=== PATIENT | male | born 1950 | race Caucasian/White ===

== ENCOUNTER → 2017-04-23 | Outpatient (CLI) | payer OTHER ==
[~2017-04-23] VITALS: Ht 175.3 cm; Wt 81.6 kg
[~2017-04-23] MED LIST: BETIMOL5 ML OTIC; CHANTIX1 MG PO; FLEXERIL PO; HYDROCHLOROTHIA25 M2 PO; IBUPROFEN 800800 M1 PO; NORVASC5 MG PO; OXYCODONE HCL10 MG PO; TRAVATAN Z2.5 ML OPHTHALMIC; VIAGRA100 MG PO; ZANTAC 150MG T150 MG PO
--- NOTE | ~2017-04-23 | HPC ---
[facility] [place] [address] PAIN MANAGEMENT CONSULTATION Name: ARABELLA OMALLEY Room #: REG NBA Lizzeth#: [id number] Admission: 04/23/17 Attend Phys: Leo Mcgill DO Discharge: Date of : 54 Report #: [id number] THIS REPORT FOR: //name// CC: Shahbaz Jimenez Sr. MD Leo Mcgill The patient is a 66-year-old gentleman seen in consultation at the request of Dr. Jimenez for assistance with management of chronic pain concerns. The patient states primary pain is in the low back, right leg to the foot. He denies any myelopathic symptoms, no saddle anesthesia, no bowel or bladder continence changes, no paresthesia or weakness. He states he has abdominal pain this exacerbated with walking and standing. He states that he has had 3 back surgeries [facility], there are no records available. He wears an abdominal binder type brace, uses a cane in his right hand, which he has for 3 years. He states he has [facility] with [facility] efficacy. Notes, he is status post right total hip arthroplasty and bilateral total knee arthroplasties. He describes constant, aching, sharp pain, he rates it a 9-10 on a VAS despite taking a relatively high dose opiate, oxycodone 10 mg 6 a day (equivalent to 90 mEq of morphine daily). Apparently, he has prescriptions provided by his treating physician sufficient to fill through early July. He takes gabapentin on a p.r.n. basis, but takes his oxycodone daily. REVIEW OF SYSTEMS: A complete review of systems was attached to chart and was gone over with the patient. He is . He has a 40-year smoking history, though he quit last year. He states he drinks socially, though medical record from Dr. Jimenez's office notes the patient has a history of alcohol abuse, he does have cirrhosis and history of hepatitis C, though the latter was treated with Harvoni and per the patient, he has a negative viral load. He is hypertensive, treated with hydrochlorothiazide and amlodipine. Some gastroesophageal reflux for which he takes ranitidine. Erectile dysfunction for which he uses Viagra p.r.n. Along with his oxycodone and p.r.n., gabapentin, he states he takes Flexeril 10 mg 2 a day. 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 Pain impact score is a 58/70. PHYSICAL EXAMINATION: Reveals a 5 feet 9 inches, 180 pounds gentleman, BMI is 26.6 kg/m2. Blood pressure is 139/88, pulse 86, and respirations are 20. Cranial nerves 2-12 are grossly intact. Pupils are equal, react to light and accommodation. Extraocular muscles are intact. Cervical range of motion is full, though extension exacerbates pain. Upper extremity strength is symmetric at 4/5 to all muscle groups tested. Some subjective pain in the right shoulder. Heart is regular rhythmical. Lungs are generally clear. Abdomen is benign. He has diffuse back pain in the thoracolumbar paravertebral muscles. He has a [facility] [address] [place] [address] PAIN MANAGEMENT CONSULTATION Name: ARABELLA OMALLEY Room #: REG NBA Moreau#: [id number] Admission: 04/23/17 Attend Phys: Leo Mcgill DO Discharge: Date of : 54 Report #: [id number] midline surgical scar with what appears to be a contraction deformity in the midline about L4. Lower extremity strength is symmetric at 4-5 to all muscle groups tested. Patellar and Achilles reflexes are preserved. Straight leg raise is negative. There are no recent radiographs available for evaluation at this time. ASSESSMENT: Chronic pain syndrome requiring high risk complex medication management. Status post lumbar decompressive laminectomy with primarily axial back pain. RECOMMENDATION: 1. We would recommend the patient take gabapentin on a daily basis, 300 mg 2 tablets at bedtime. 2. We will request any recent x-ray or MRI findings from a [facility]. 3. If I were to treat the patient, I told him we would enter into an opiate consent to treat contract and rotate to methadone 5 mg 1 in the morning, 2 at noon, 1 at night. This should be roughly equivalent to 90 mg of morphine. We will avoid the peaks and troughs of short-acting opiates and the concomitant dopamine release seen with short acting opiates, which may contribute to opiate habituation. We would try opiate wean as able. Given the patient has prescriptions through July, we provided no prescriptions today and I told him I will be happy to see him back in July, we will do a buccal drug swab at that time if he chooses to transfer his opiate care to our clinic. Thank you for allowing me participate in the patient's care. <ELECTRONICALLY SIGNED> By: Leo Mcgill DO 04/29/17 0808 [id number] 1436 Leo Mcgill DO /nt
[2017-04-23 13:39] VITALS: BP 139/88
== END ==
LOC: PAIN 07:30
DX: G89.4 Chronic pain syndrome (principal); M96.1 Postlaminectomy syndrome, not elsewhere classified; Z79.899 Other long term (current) drug therapy

== ENCOUNTER → 2017-06-08 | Outpatient (CLI) | payer OTHER ==
[~2017-06-08] VITALS: Ht 175.3 cm; Wt 91.5 kg
[~2017-06-08] MED LIST changes: +EMBEDA ER 50-21 EACH PO; +EMBEDA ER 60-21 EACH PO; +GABAPENTIN 100100 MG PO; +METHADONE HCL 110 M1 PO; +NEURONTIN 300300 M1 PO
--- NOTE | ~2017-06-08 | HPC ---
[facility] [place] [place] [address] PAIN MANAGEMENT CONSULTATION Name: ARABELLA OMALLEY Room #: REG NBA Moreau#: [id number] Admission: 06/08/17 Attend Phys: Leo Mcgill DO Discharge: Date of : 54 Report #: [id number] THIS REPORT FOR: //name// CC: Sr. MD Leo Del Cid DATE OF SERVICE: 06/08/2017 The patient is a 66-year-old gentleman initially seen in consultation 04/23/2017. He returns to pain clinic today, we had a prolonged visit from 09:54-10:25. Greater than 50% of this 25+ minute visit was spent counseling the patient. Presents to pain clinic today. He has some choreoathetoid type movement today. Seems to be fairly anxious. He tells me that he is concerned about rotating from oxycodone 20 mg 4 times a day to methadone. He tells me today that he had had a history of heroin abuse in his 20s. He used heroin for 7-8 years and then used methadone for 2-3 years to wean off of heroin. He is a poor historian and blames his Harvoni use (for hepatitis C) on his poor memory. He does note chronic axial back pain and bilateral knee pain. Does have a modestly antalgic gait. Rates his pain a 4 on VAS with a fairly high use of short-acting opiate (oxycodone immediate release 20 mg 4 times a day). I stressed with the patient today that the 20 mg oxycodone he is using p.o. is equivalent to 30 mg of morphine and is actually closer to his prior use of heroin than rotating the methadone to be. He was concerned that if he started methadone, he would be "addicted" to narcotics. I assured him he probably had opiate dependence at this point already and was in fact exhibiting some opiate withdrawal today with his agitation and choreoathetoid type movements. He notes his pain is "allover" but primarily back. BMI is 29.8 kilograms per meter squared. Blood pressure is 138/88, pulse 72, respirations 20. Again, rates his pain a 4 on VAS with current medications. He has not fallen in the last 3 months, but does use a cane for balance. History of hypertension and chronic opiate use. We did review an opiate consent to treat contract today. The patient is willing after our discussion to at least trial using methadone for 4 weeks. Again, with the patient taking approximately 120 mEq of morphine a day (80 mg oxycodone), the equivalent would be roughly 30 mg of methadone daily. We have elected to write for 10 mg of methadone t.i.d., I gave him prescription for 45 tablets, his last oxycodone prescription was filled 05/17/2017. We will release the methadone 06/15/2017. A second prescription to be released 2 weeks later, 06/29/2017 for another 45 mg of methadone to be used t.i.d. was generated. We did get a buccal drug swab today. The patient claims that he is only using oxycodone, is not using tobacco products. This should be negative for nicotine, positive for oxycodone metabolites, negative for any other opiate, benzodiazepine or nicotine. [facility] [address] [place] [address] PAIN MANAGEMENT CONSULTATION Name: ARABELLA OMALLEY Room #: ELIECER Moreau#: [id number] Admission: 06/08/17 Attend Phys: Leo Mcgill DO Discharge: Date of : 54 Report #: [id number] Follow up in 4 weeks for reevaluation. Discharged in good stable condition after a 25+ minute visit was spent counseling the patient. <ELECTRONICALLY SIGNED> By: Leo Mcgill DO 06/10/17 0811 1042 1751 Leo Mcgill DO /nt
[2017-06-08 09:33] VITALS: BP 138/88
== END ==
LOC: PAIN 06:59
DX: M54.5 Low back pain (principal); M25.561 Pain in right knee; M25.562 Pain in left knee; Z79.899 Other long term (current) drug therapy

== ENCOUNTER → 2017-07-06 | Outpatient (CLI) | payer OTHER ==
[~2017-07-06] VITALS: Ht 175.3 cm; Wt 90.4 kg
--- NOTE | ~2017-07-06 | HPC ---
[facility] [address] [place] [address] PAIN MANAGEMENT CONSULTATION Name: ARABELLA OMALLEY Room #: ELIECER Moreau#: [id number] Admission: 07/06/17 Attend Phys: Leo Mcgill DO Discharge: Date of : 54 Report #: [id number] THIS REPORT FOR: //name// <ELECTRONICALLY SIGNED> By: Leo Mcgill DO 07/09/17 1010 1201 1520 Leo Mcgill DO /nt
--- NOTE | ~2017-07-06 | HPC ---
[facility] [place] [address] PAIN MANAGEMENT CONSULTATION Name: ARABELLA OMALLEY Room #: REG NBA Moreau#: [id number] Admission: 07/06/17 Attend Phys: Leo Mcgill, DO Discharge: Date of : 54 Report #: [id number] THIS REPORT FOR: //name// CC: Shahbaz Mcgill The patient is a pleasant, yet unfortunate 66-year-old gentleman, initially seen in consultation 04/23/2017, for chronic axial back pain, chronic pain syndrome requiring complex medication management, history of opiate habituation and hepatitis C conversion. The patient had a buccal swab at last visit 06/08/2017, positive for oxycodone and nicotine. The patient returns to pain clinic today, we again had a prolonged visit from 10:57-11:25, greater than 50% of this time spent counseling the patient. The patient claims that when he started taking methadone, he developed a lot of phlegm in the back of his throat, he states he had a hard time swallowing. He states he did not feel the medication was as effective as his prior oxycodone. He had been taking 10 mg 1-2 tablets at a time up to 6 tablets a day. This should have been an equally analgesic dose, 6 oxycodone being roughly equivalent to 120 mg of morphine and even at the lowest conversion, 30 mg of oxycodone should have been equivalent to 120 mg of morphine. The patient incidentally notes he takes high dose Benadryl nearly 100 mg a day for some chronic pruritus (he relates this secondary to alcohol syndrome?). He as noted in prior dictations does have a history of heroin use for about 8 years in the past, was on methadone for about 2 years, getting off of heroin. This had been in his 20s and early 30s, he is now 66 years of age. He does incidentally note that his gabapentin prior had been helpful for his chronic leg pain, though he had self-discontinued it. Today, he notes his subjective pain score is 8 on a VAS, describes pain across the low back and "all over." PHYSICAL EXAMINATION: Otherwise, shows a 66-year-old gentleman, BMI is 29.4 kg/m2. Blood pressure 136/90, pulse 87, respirations are 20. He is alert and oriented to person, place and time, judged to be a reasonable historian. Cervical range of motion is full. Upper extremity strength is preserved. He does have some subjective pain with right shoulder range of motion. Diffuse tenderness in the thoracolumbar paravertebral muscles. No discrete trigger points are noted. Gait is tandem. Lower extremity strength is preserved. [address] [address] PAIN MANAGEMENT CONSULTATION Name: ARABELLA OMALLEY Room #: REG Teri Moreau#: [id number] Admission: 07/06/17 Attend Phys: Leo Mcgill DO Discharge: Date of : 54 Report #: [id number] Straight leg raising negative. We reviewed the fact that opiate medications are being used to provide analgesia adequate to support activities of daily living, not attempting to achieve a specific pain score on the 0-10 Visual Analog Scale. The current opiate medications are providing sufficient analgesia to allow the patient to participate in activities of daily living. The patient is not exhibiting any aberrant behavior suggestive of drug diversion. The patient is not having any adverse reactions to medications. The patient is not suffering from daytime somnolence or mental acuity changes. The patient is managing opiate-induced constipation with appropriate vzxs-ehr-hqeoqfr agents and dietary considerations. The patient was counseled on concern for caution with operating a motor vehicle while using opiate medications. A physical exam was performed and the patient's functional status was evaluated. All patients with back pain were advised against the bed rest greater than 4 days and were advised to return to normal activities. Pain score assessment was noted and the treatment plan was reviewed with the patient. All current medications, both prescribed and OTC were reviewed and reconciled on the electronic medical record. Tobacco screening was accomplished and smoking cessation was advised when indicated. BMI was noted and diet/exercise modification was recommended for all patients following outside normal parameters. I reviewed with the patient today their responsibilities to safeguard prescription medications, reviewed their responsibility to utilize medications only as prescribed by the physician. They are to seek and receive pain medications only from 1 physician group ( [facility]). They are to use 1 pharmacy and keep the clinic informed if they change pharmacies. Their responsibilities include making followup visits in a timely fashion and to avoid abrupt discontinuation of medication usage. Their responsibilities further include bringing their medications (bottles from the pharmacy with residual pills) to the visit for possible confirmation of pill counts and the patient understands it is their responsibility to submit to random drug screens to ensure both that the medications prescribed are present, and that no other controlled substances are present. All prescriptions provided today were generated electronically. Long discussion with the patient today about therapeutic options. I strongly recommend he continue with methadone. I told him we can start to lower that dose if needed. I talked about smoking cessation and absolute mandate no alcohol with methadone. (The patient states that he had started to take a shot of alcohol with his methadone to make it work "better"). Again, I reviewed with the patient his opiate risk. [facility] [address] [place] [address] PAIN MANAGEMENT CONSULTATION Name: ARABELLA OMALLEY Room #: [facility]#: [id number] Admission: 07/06/17 Attend Phys: Leo Mcgill DO Discharge: Date of : 54 Report #: [id number] ASSESSMENT: 1. Axial back pain. 2. Complex medication management. 3. History of opiate habituation and tolerance and subsequent wean now 20 plus years ago. 4. History of hepatitis C, status post Harvoni therapy. RECOMMENDATION: 1. Repeat buccal swab today, should be positive for methadone as the sole opiate, though the patient indicates he may still be taking oxycodone (?). 2. Counseled the patient regarding using methadone as the sole opiate, I have taken the liberty of writing for 45 methadone 10 mg tablets, one tablet 3 times a day with a prescription to be released in 2 weeks for another 45 tablets. 3. Resume gabapentin 300 mg 1-2 tablet at bedtime. 4. Mandate NO alcohol use with methadone. 5. Follow up in 4 weeks for reevaluation. Discharged in good and stable condition. <ELECTRONICALLY SIGNED> By: Leo Mcgill DO 07/09/17 1010 1157 1514 Leo Mcgill DO /nt
[2017-07-06 10:38] VITALS: BP 136/90
== END ==
LOC: PAIN 07:35
DX: M54.5 Low back pain (principal); Z79.899 Other long term (current) drug therapy; Z86.19 Personal history of other infectious and parasitic diseases; F11.10 Opioid abuse, uncomplicated

== ENCOUNTER → 2017-08-17 | Outpatient (CLI) | payer OTHER ==
[~2017-08-17] VITALS: Ht 175.3 cm; Wt 88.7 kg
[~2017-08-17] MED LIST changes: -EMBEDA ER 50-21 EACH PO; -GABAPENTIN 100100 MG PO
--- NOTE | ~2017-08-17 | HPC ---
[facility] [place] [address] PAIN MANAGEMENT CONSULTATION Name: ARABELLA OMALLEY Room #: REG NBA Moreau#: [id number] Admission: 08/17/17 Attend Phys: Leo Mcgill DO Discharge: Date of : 54 Report #: [id number] THIS REPORT FOR: //name// CC: Shahbaz Mcgill DATE OF SERVICE: 08/17/2017 The patient is an unfortunate 67-year-old gentleman, initially seen in consultation on 04/23/2017. He was taking high dose opiates, oxycodone 10 mg 6 a day equivalent to 90 mg of morphine. I suggested rotating to methadone 5 mg 1 in the morning, 2 at noon, 1 at night, but no prescriptions was generated at that time. He was seen in followup on 06/08/2017, noting he was a little bit concerned about rotating back to methadone. Stated he had to use methadone to get off heroin, which he used for about 8 years in his 20s. States he was able to wean off of heroin after 2-3 years. He is a poor historian. He blames use of Harvoni for this (was treated for hepatitis C recently). He does note that his chronic axial back and bilateral knee pain remains problematic. This is the reason for which he was taking his prior opiate. We ultimately did start methadone at that May visit. I saw him in followup 07/06/2017. He complained that he felt that methadone was not helpful. States he is developing a lot of "phlegm" in the back of his throat, felt that he had a hard time swallowing. Again, given that he had been on methadone for a number of years in the past while weaning off of heroin, I do not believe that there is any indication he is allergic to this drug. I think he simply wanted to go back to oxycodone. I suggested we increase the methadone dose if it was not efficacious to a total of 1 tablet 3 times a day. I gave him 2 prescriptions, 1 for 45 tablets (quantity sufficient for 2 weeks) and a second prescription for another 45 tablets to be released 2 weeks subsequent. I mandated the patient to not drink any alcohol with this agent. He returns to pain clinic today noting his pain is an 8 on a VAS. He tells me that he almost fell out of the bathtub because his pain was so bad. It is unclear if he is actually taking methadone or not. He states he took "some," but it did not help and it made him feel like it was hard to swallow. He has resumed drinking alcohol to "help with the pain." He is fairly confrontational and distressed today. I told the patient that I was not going to start him back on short-acting high-dose opiates. I will not do this for any patient and specifically not one who had had trouble with narcotic habituation in the past. Ultimately, after a prolonged discussion with the patient, I have elected to try 1 more long acting opiate, we will try rotating to Embeda 60/2.4. It is a modest decrease in his overall opiate load of 60 oxycodone a day, but with opiate rotation he may get a little better efficacy. I wrote for 15 tablets with a second prescription for 15 tablets to be released in 2 weeks. We will get a urine drug screen at that [facility] [address] [facility] [place] [address] PAIN MANAGEMENT CONSULTATION Name: ARABELLA OMALLEY Room #: ELIECER Wilkes.#: [id number] Admission: 08/17/17 Attend Phys: Leo Mcgill DO Discharge: Date of : 54 Report #: [id number] time. I mandate the patient not drink with this agent. I did not get a urine drug screen today as the patient admitted that he was drinking regularly, although later stated he only "drank yesterday because of his brother's birthday." When I told him I would like to get a urine drug screen and remind him that it would be positive for ethanol if he had drunk within the past 24 hours, he deferred and said perhaps he should not get his urine screen today. PHYSICAL EXAMINATION: Otherwise shows 67-year-old gentleman, BMI is 28.9 kg per meter squared. Vital signs are stable as noted in the EMR. Again, he is generally alert and oriented, somewhat belligerent initially, but did quiet down a little bit. Has choreoathetoid movement while sitting in the chair, does not appear to be comfortable sitting, fairly anxious, rises from the chair. Gait is generally tandem. Diffuse axial tenderness in the low back. Lower extremity strength is symmetric. We reviewed the fact that opiate medications are being used to provide analgesia adequate to support activities of daily living, not attempting to achieve a specific pain score on the 0-10 Visual Analog Scale. The current opiate medications are providing sufficient analgesia to allow the patient to participate in activities of daily living. The patient is not exhibiting any aberrant behavior suggestive of drug diversion. The patient is not having any adverse reactions to medications. The patient is not suffering from daytime somnolence or mental acuity changes. The patient is managing opiate-induced constipation with appropriate qvkb-ehy-anvsxva agents and dietary considerations. The patient was counseled on concern for caution with operating a motor vehicle while using opiate medications. A physical exam was performed and the patient's functional status was evaluated. All patients with back pain were advised against the bed rest greater than 4 days and were advised to return to normal activities. Pain score assessment was noted and the treatment plan was reviewed with the patient. All current medications, both prescribed and OTC were reviewed and reconciled on the electronic medical record. Tobacco screening was accomplished and smoking cessation was advised when indicated. BMI was noted and diet/exercise modification was recommended for all patients following outside normal parameters. I reviewed with the patient today their responsibilities to safeguard prescription medications, reviewed their responsibility to utilize medications only as prescribed by the physician. They are to seek and receive pain medications only from 1 physician group ( [facility]). They are to use 1 pharmacy and keep the clinic informed if they change pharmacies. Their responsibilities include making followup visits in a timely fashion and to avoid abrupt discontinuation of medication usage. Their responsibilities further include bringing their medications (bottles from the pharmacy with residual pills) to the visit for possible confirmation of pill counts and the patient [address] [address] PAIN MANAGEMENT CONSULTATION Name: ARABELLA OMALLEY Room #: REG CL Lizzeth#: [id number] Admission: 08/17/17 Attend Phys: Leo Mcgill DO Discharge: Date of : 54 Report #: [id number] understands it is their responsibility to submit to random drug screens to ensure both that the medications prescribed are present, and that no other controlled substances are present. All prescriptions provided today were generated electronically. The patient discharged in good and stable condition. Follow up in 4 weeks for reevaluation. We will get a urine drug screen at that time; urine screening being more sensitive to ethanol metabolites than buccal swab. <ELECTRONICALLY SIGNED> By: Leo Mcgill DO 08/19/17 0753 1442 10 Leo Mcgill DO /nt
[2017-08-17 12:58] VITALS: BP 132/80
== END ==
LOC: PAIN 07:18
DX: M54.9 Dorsalgia, unspecified (principal); M25.561 Pain in right knee; M25.562 Pain in left knee

== ENCOUNTER → 2017-09-14 | Outpatient (CLI) | payer OTHER ==
[~2017-09-14] VITALS: Ht 175.3 cm; Wt 85.4 kg
[~2017-09-14] MED LIST changes: +EMBEDA ER 50-21 EACH PO; +GABAPENTIN 100100 MG PO
--- NOTE | ~2017-09-14 | HPC ---
[facility] [place] [address] PAIN MANAGEMENT CONSULTATION Name: ARABELLA OMALLEY Room #: REG NBA Moreau#: [id number] Admission: 09/14/17 Attend Phys: Leo Mcgill DO Discharge: Date of : 54 Report #: [id number] THIS REPORT FOR: //name// CC: Shahbaz Mcgill DATE OF SERVICE: 09/14/2017 The patient is a 66-year-old gentleman originally referred to our clinic at the end of last year. He has chronic pain syndrome requiring complex medication management. He is status post multiple back surgeries, status post right total hip arthroplasty, status post bilateral total knee arthroplasties. He has been managed with high-dose short-acting opiates prior to coming to our clinic. When he came, he was taking oxycodone 20 mg 3-4 times a day. Concerned about opiate abuse disorder, he had used heroin for 7 or 8 years in his 20s. He had weaned off heroin using methadone. He did contract hepatitis C and prior to seeing me, he had completed [facility] for hepatitis C. He claimed that the Harvoni had impacted his memory. He is a fairly poor historian. He had continued to keep use tobacco products. He had an odd choreoathetoid type movement with agitation present at all of his prior visits except this one. He is actually a little more physically sedate today. He does not appear to be in active withdrawal as he had been at other visits. We had rotated to Embeda 60 mg once a day. He returns to pain clinic today claiming functional assessment remains quite high at 55/70, rating his pain 8 on a VAS. He states that using gabapentin "for breakthrough" pain helps or leaves him quite sedate for "several days." He has been using simply his 300 mg gabapentin tablet. Today, physical exam shows 67-year-old gentleman, again appears to be a little more relaxed today. He does not have the choreoathetoid constant movement he had before. He is complaining of pain "all over." BMI is 28.9 kilograms per meter squared. Blood pressure 132/80, pulse 86, respirations 20, room air oxygen saturation 98%. Subjective pain score is 3 on a VAS. He is using a cane today. He states the wheels on his walker have broken, but he has someone coming in to fix it. He states his sister is his "healthcare worker." Apparently, she is employed through Medicaid/Medicare getting paid to take care of him (?). She comes by and takes him to the park 3 times a week and they walk for an hour or so. This is his greatest amount of functional/recreational activity. He presents to the pain clinic today. Random drug screen at last visit 07/06/2017 was positive for methadone, nicotine. Negative for EDDP. He is generally alert and oriented. He rises from the chair using armrest. Has a somewhat antalgic gait favoring the right leg, complaining of ongoing right hip pain. Lower extremity strength is generally symmetric, resistance to right hip flexion and lower extremity extension exacerbates hip pain. Passive rotation of the hip is unremarkable, use caution not to exceed normal range of motion. [address] [address] PAIN MANAGEMENT CONSULTATION Name: ARABELLA OMALLEY Room #: REG NBA Moreau#: [id number] Admission: 09/14/17 Attend Phys: Leo Mcgill DO Discharge: Date of : 54 Report #: [id number] Jael test was not challenged. Points to pain in the right hip and groin compatible with a hip mediated pain. Diffuse axial back pain, no discrete trigger points noted. We reviewed the fact that opiate medications are being used to provide analgesia adequate to support activities of daily living, not attempting to achieve a specific pain score on the 0-10 Visual Analog Scale. The current opiate medications are providing sufficient analgesia to allow the patient to participate in activities of daily living. The patient is not exhibiting any aberrant behavior suggestive of drug diversion. The patient is not having any adverse reactions to medications. The patient is not suffering from daytime somnolence or mental acuity changes. The patient is managing opiate-induced constipation with appropriate kxko-ljq-isaazzd agents and dietary considerations. The patient was counseled on concern for caution with operating a motor vehicle while using opiate medications. A physical exam was performed and the patient's functional status was evaluated. All patients with back pain were advised against the bed rest greater than 4 days and were advised to return to normal activities. Pain score assessment was noted and the treatment plan was reviewed with the patient. All current medications, both prescribed and OTC were reviewed and reconciled on the electronic medical record. Tobacco screening was accomplished and smoking cessation was advised when indicated. BMI was noted and diet/exercise modification was recommended for all patients following outside normal parameters. I reviewed with the patient today their responsibilities to safeguard prescription medications, reviewed their responsibility to utilize medications only as prescribed by the physician. They are to seek and receive pain medications only from 1 physician group ( [facility]). They are to use 1 pharmacy and keep the clinic informed if they change pharmacies. Their responsibilities include making followup visits in a timely fashion and to avoid abrupt discontinuation of medication usage. Their responsibilities further include bringing their medications (bottles from the pharmacy with residual pills) to the visit for possible confirmation of pill counts and the patient understands it is their responsibility to submit to random drug screens to ensure both that the medications prescribed are present, and that no other controlled substances are present. All prescriptions provided today were generated electronically. ASSESSMENT: Chronic pain syndrome requiring complex medication management in a gentleman status post lumbar decompressive laminectomy, prior history of opiate habituation and abuse disorder, ongoing nicotine habituation, history of ethanol habituation. RECOMMENDATIONS: 1. Buccal drug swab today. It should be positive for morphine as the sole opiate. We will continue Embeda but decreased from 60 to 50 mg in consideration of the patient's untoward sedation (Embeda 50/2 mg naltrexone), dispensed 30 [facility] [address] [place] [address] PAIN MANAGEMENT CONSULTATION Name: ARABELLA OMALLEY [id number] Admission: 09/14/17 Attend Phys: Leo Mcgill DO Discharge: Date of : 54 Report #: [id number] tablets. We will have the patient follow up in 4 weeks for reevaluation. We will continue gabapentin, but decrease to 100 mg tablet up to t.i.d. for breakthrough pain. 2. Refer to [facility] for evaluation of the right total hip arthroplasty (about 2-1/2 years ago). The patient states he had a total hip arthroplasty accomplished at the [facility] (?). [facility] is no longer "on his insurance network." With ongoing pain from this JAH, I beleive it would be prudent to have an orthopedic w/u to determine if there is any surgical intervention warranted to address this pain generator. Buccal swab accomplished today. Medication changes as noted above. Followup in 4 weeks for reevaluation. The patient was seen for prolonged visit today from 12:39-13:10. Greater than 50% of this visit was spent counseling the patient.Discharged in good and stable condition. <ELECTRONICALLY SIGNED> By: Leo Mcgill DO 09/17/17 0701 [id number] Leo Mcgill DO /nt
[2017-09-14 12:33] VITALS: BP 126/90
== END ==
LOC: PAIN 06:51
DX: G89.29 Other chronic pain (principal); Z79.899 Other long term (current) drug therapy; Z96.641 Presence of right artificial hip joint; Z96.653 Presence of artificial knee joint, bilateral

== ENCOUNTER → 2018-03-26 | Outpatient (CLI) | payer OTHER ==
[~2018-03-26] VITALS: Ht 175.3 cm; Wt 81.8 kg
[2018-03-26 08:14] VITALS: BP 134/93
== END ==
LOC: PAIN 07:09
DX: M54.5 Low back pain (principal); M25.561 Pain in right knee; M25.562 Pain in left knee; M25.551 Pain in right hip; F17.210 Nicotine dependence, cigarettes, uncomplicated; Z72.89 Other problems related to lifestyle; Z79.899 Other long term (current) drug therapy; Z79.891 Long term (current) use of opiate analgesic

== ENCOUNTER → 2018-04-23 | Outpatient (CLI) | payer OTHER ==
[~2018-04-23] VITALS: Ht 175.3 cm; Wt 82.9 kg
--- NOTE | ~2018-04-23 | HPC ---
[facility] [place] [address] [place] [address] PAIN MANAGEMENT CONSULTATION Name: ARABELLA OMALLEY Room #: REG NBA Moreau#: [id number] Admission: 04/23/18 Attend Phys: Adenike Stokes MD Discharge: Date of : 54 Report #: [id number] THIS REPORT FOR: //name// CC: Adenike Jimenez DATE OF SERVICE: 04/23/2018 HISTORY OF PRESENT ILLNESS: The patient is a 67-year-old gentleman who has been followed in the pain clinic because of chronic pain. He is being treated with complex medical management of opioid medications. He has had multiple back surgeries. Status post right hip arthroplasty, bilateral total knee arthroplasties. He is being maintained on opioid medications. I feel that the methadone medication is helpful. Has a history of opioid abuse disorder. He was on heroin 7-8 years while in his 20s. He weaned of the heroin medication and continues to use methadone. Did have contact with hepatitis C. Prior to coming to this clinic, he was treated with Harvoni. He states that the Harvoni has impacted his memory. He is a poor historian. Continues to use tobacco. Has some choreoathetoid movement in the past. He has been treated with gabapentin in the past. He has returned today for renewal of his medications. States that he has not been drinking since we had our conversation at the last visit. ALLERGIES: MORPHINE. MEDICATIONS: Methadone 10 mg tablets 1 p.o. t.i.d. 2-week prescriptions have been released. Travatan Z 2.5 mL 1 drop ophthalmic at bedtime, timolol ____ drops, Flexeril 10 mg 1 p.o. t.i.d., Zantac 150 mg, Norvasc 5 mg, and hydrochlorothiazide 25 mg. PAIN CLINIC ASSESSMENT/PQRS: 1. History of osteoarthritic changes in his knees, right hip. The patient is not being treated for rheumatoid arthritis. 2. Height 5 feet 9 inches, weight 182 pounds, BMI is 27. 3. Vital signs: Blood pressure 137/78, pulse 79, respiratory rate 16, room air saturation 97%. 4. Pain intensity 11/17. 5. Fall risk. The patient has not fallen in the last 3 months. He does walk with a cane. 6. Blood thinner. The patient is not on a blood thinning medication. 7. Hypertension. The patient is being treated for hypertension. 8. Opioid medications greater than 6 weeks. The patient receives his medication from one source, the pain clinic. 9. Risk assessment tool, 9 high for opioid use. 10. Functional assessment tool 55/70. 11. Recreational drug use. The patient denies use of recreational drugs. [address] [address] PAIN MANAGEMENT CONSULTATION Name: ARABELLA OMALLEY [id number] Admission: 04/23/18 Attend Phys: Adenike Stokes MD Discharge: Date of : 54 Report #: [id number] 12. Tobacco: The patient continues to smoke, smokes 1 pack of cigarettes per day and smoked for years. Again, discussed the benefits of smoking cessation with the patient. 13. Alcohol. Explained to the patient that he should refrain from use of alcoholic beverages, states that he has decreased his use of alcohol. PHYSICAL EXAMINATION: GENERAL: The patient is a well-developed, well-nourished black male, appears his stated age. He is alert and oriented today. Speech is fluent. No evidence or activity, which would lead one to believe that he has alcohol on board. NECK: Without JVD or adenopathy. Pulse regular. LUNGS: Without rhonchi or rales. MUSCULOSKELETAL: The patient complains of back pain, has bilateral knee pain, has pain in his right hip. Walks with an antalgic gait, using his cane. IMPRESSION: 1. Chronic pain, treated with complex medical management using opioid medication. 2. Hypertension. 3. Liver disease. 4. History of hepatitis C, treated with Harvoni. 5. Stomach problems. RECOMMENDATIONS: We discussed treatment options with the patient. Again, we reiterate to the patient, he should refrain from use of alcohol. States his medications are helpful. Continues to go and be followed in the [facility]. We have rewritten his medications. We have given him a 2-week supply of methadone, 45 mg in each script. He will follow up in a month. He will continue with Neurontin and note his GI status with use of nonsteroidal anti-inflammatory medications. We would like to thank you for letting us participate in his care. We hope he continues to improve. By: [id number] Adenike Stokes MD /nt
[2018-04-23 08:47] VITALS: BP 137/78
== END ==
LOC: PAIN 08:39
DX: G89.29 Other chronic pain (principal); I10 Essential (primary) hypertension; K76.9 Liver disease, unspecified; F17.210 Nicotine dependence, cigarettes, uncomplicated; Z79.891 Long term (current) use of opiate analgesic; Z86.19 Personal history of other infectious and parasitic diseases; Z96.641 Presence of right artificial hip joint; Z96.653 Presence of artificial knee joint, bilateral; Z88.5 Allergy status to narcotic agent

== ENCOUNTER → 2018-05-28 | Outpatient (CLI) | payer OTHER ==
[~2018-05-28] VITALS: Ht 175.3 cm; Wt 81.2 kg
--- NOTE | ~2018-05-28 | HPC ---
[facility] [place] [address] PAIN MANAGEMENT CONSULTATION Name: ARABELLA OMALLEY Room #: REG NBA Lizzeth#: [id number] Admission: 05/28/18 Attend Phys: Adenike Stokes MD Discharge: Date of : 54 Report #: [id number] THIS REPORT FOR: //name// CC: Adenike Hartmann Amite DATE OF SERVICE: 05/28/2018 CHIEF COMPLAINT: Here for renewal of medication. HISTORY: The patient is a 67-year-old gentleman who has been followed in the pain clinic because of chronic pain. He is on a complex medication management using opioids. He has had multiple back surgeries. He is status post right hip arthroplasty and has had bilateral total knee arthroplasties. He is being maintained on an opioid regimen. The patient did find methadone continues to be helpful. Does have a history of opioid abuse disorder. He was using heroin for 7-8 years when he was in his 20s. He is weaned off the heroin medication and continues to use methadone. The patient did contact hepatitis C. He has been treated for this with [facility]. States that the Harvoni impacted his memory. He is a poor historian. Continues to use tobacco. Has some choreoathetoid movements in the past. Has used gabapentin in the past. Returns today with his significant other for renewal of his medication. States he is not drinking. We have had a discussion that use of methadone and alcohol would be a reason for having to discontinue his opioid medications. ALLERGIES: MORPHINE. CURRENT MEDICATIONS: Methadone 10 mg 1 p.o. t.i.d., 2-week prescription has been released. A second 2-week prescription has been released. The patient get his medications by monthly Travatan Z 2 mL 1 drop of ophthalmic at bedtime, timolol drops, Flexeril 10 mg 1 p.o. t.i.d., Zantac 150 mg, Norvasc 5 mg, hydrochlorothiazide 25 mg. PAIN CLINIC ASSESSMENT/PQRS: 1. History of osteoarthritic changes involving his knees, hip. 2. The patient is not being treated for rheumatoid arthritis. 3. Height 5 feet 9 inches, weight 179 pounds, BMI is 24.4. 4. Vital signs: Blood pressure 129/86, pulse 80, respiratory rate 18, room air saturation 97%. 5. Pain intensity 8-/10. 6. Fall risk. The patient has not fallen in the last 3-4 months. Complain of some shooting pain in his low back area. 7. Blood thinner. The patient is not on a blood thinning medication. 8. Hypertension. The patient is being treated for hypertension. 9. Opioid greater than 6-week. 10. Risk assessment tool. High for opioid use. [facility] [address] [place] [address] PAIN MANAGEMENT CONSULTATION Name: ARABELLA OMALLEY Room #: REG [employer]#: [id number] Admission: 05/28/18 Attend Phys: Adenike Stokes MD Discharge: Date of : 54 Report #: [id number] 11. Functional assessment tool 55/70. 12 Recreational drug use. The patient denies use of recreational drugs. 13. Tobacco: The patient states that he has used Chantix to help decrease tobacco use. 14. Alcohol: The patient has used alcohol in the past. States he has not used alcohol since we saw him last. PHYSICAL EXAMINATION: GENERAL: The patient is a well-developed, well-nourished appearing black male, appears his stated age. He is alert and oriented x3. His significant other is with him. Has complained of pain and discomfort and his low back area, knees, hips. Walks with antalgic gait. Continues to use his cane. LUNGS: Without rhonchi or rales. NECK: Without JVD or adenopathy. IMPRESSION: 1. Chronic pain treated with complex medical regimen using opioid medications dispensed, 2-week intervals of methadone 2. Hypertension. 3. Liver disease. 4. Hepatitis C, treated with Harvoni. 5. Strong stomach problems. RECOMMENDATIONS: We discussed treatment options with the patient. Again, he states that he is not using alcohol. We explained to him, he must refrain from use of alcohol. Continues to receive his opioid medications from the pain clinic. Continues to be followed up in the [facility]. We have rewritten 2-week supplies of his medications. Total of two scripts of 45 tablets each to be dispersed during the course of month. He will call us if he has any concerns. The patient will continue with Neurontin and monitor his GI tract. Given using nonsteroidal anti-inflammatory medications. We would like to thank you for letting us to participate in his care. We hope he continues to improve. By: [id number] Adenike Stokes MD /JARROD
[2018-05-28 10:13] VITALS: BP 129/86
--- NOTE | 2018-05-28 10:19 | NUR ---
Pain Clinic Assessment: 1. History of Osteoarthritis: "ALL OVER" History of Rheumatoid Arthritis: Not Applicable 2. Height: 5 ft. 9 in. 175.3 cm. Weight: 179.0 lb. oz. 81.194 kg. Patient's BMI: 26.4 3. Vital Signs: BP: 129/86 Pulse: 80 Resp: 18 Temp: 02 Sat: 97 ECG Mon: 4. Pain Intensity: 9 5. Fall Risk: Dizziness: N Needs help standing or walking: Y Fallen in the last 3 months: Y Fall risk comments: 6. Patient on Blood Thinner: None 7. History of Hypertension: Y 8. Opioid Therapy greater than 6 weeks: Y Opiate Contract Signed: 06/08/17 9. Risk Assessment Tool Provided: 9- HIGH 10. Functional Assessment Tool: / 11. Recreational Drug Use: Past greater than 3 mos Drug Type: Tobacco Use: Current Every Day Smoker Tobacco Type: Amount or Packs/day: How Many Years: Alcohol Use: Yes Frequency: Quant:
== END ==
LOC: PAIN 05-26 14:17
DX: M54.5 Low back pain (principal); M25.561 Pain in right knee; M25.562 Pain in left knee; M25.551 Pain in right hip; F17.200 Nicotine dependence, unspecified, uncomplicated; Z79.899 Other long term (current) drug therapy; Z79.891 Long term (current) use of opiate analgesic; Z72.89 Other problems related to lifestyle

== ENCOUNTER → 2018-07-08 | Outpatient (CLI) | payer OTHER ==
[~2018-07-08] VITALS: Ht 175.3 cm; Wt 81.0 kg
--- NOTE | ~2018-07-08 | HPC ---
[facility] [place] [address] PAIN MANAGEMENT CONSULTATION Name: ARABELLA OMALLEY Room #: REG [facility] Lizzeth#: [id number] Admission: 07/08/18 ������������������ Attend Phys: Krysta Chatterjee Discharge: ������������������ Date of : 54 Report #: [id number] THIS REPORT FOR: //name// CC: Krysta Hartmann Barbara DATE OF SERVICE: 07/08/2018 CHIEF COMPLAINT: Chronic back pain and right hip pain. HISTORY OF PRESENT ILLNESS: The patient returns to the pain clinic today for medication management for his ongoing low back pain and right hip pain. Today, he is also complaining of some left shoulder pain and it does radiate into his left hand. He tells me his pain score is 8/10. It is a sharp, constant, stabbing pain. He states the weather has made his pain worse, he said, as well as activity, standing and movement. The medications are helpful as well as heat and rest. He would like a refill of his medications today. He is here present with a family member. He does complain about having to come every month and getting scripts normally every 2 weeks, but he would like his medication filled today. CURRENT ALLERGIES: To GABAPENTIN. MEDICATIONS: Methadone 10 mg 3 times a day, Travatan drops at bedtime, Betimol drops daily, Flexeril 10 mg 3 times a day, Zantac 150 mg b.i.d., amlodipine 5 mg daily and hydrochlorothiazide 25 mg daily. PQRS: 1. He has a history of arthritic changes in his knees and his hips. He is not being treated for rheumatoid arthritis. 2. His height is 5 feet 9 inches, weight is 178 and BMI is 26. 3. Vital signs: Blood pressure 141/88, pulse is 83, respirations 16 and oxygen sat is 99. 4. Pain score is 8/10. 5. Fall risk. Denies dizziness, does not need help walking or standing and he has not fallen in the last 3 months. 6. He is not on any blood thinners but does take medicine for hypertension. 7. Opiate therapy is greater than 6 weeks; therefore, an opioid signed contract is on the chart. 8. Risk assessment tool is moderate. His functional assessment is 40/70. 9. Recreational drug use, greater than 3 months. He does smoke cigarettes every day and he does use alcohol frequently. We checked the prescription monitoring system. The patient is filling appropriately from his medications every 2 weeks. There is a recent drug screen on his chart within the past year. The patient tells me he does safeguard his [address] [address] PAIN MANAGEMENT CONSULTATION Name: ARABELLA OMALLEY Room #: [facility] Moreau#: [id number] Admission: 07/08/18 ������������������ Attend Phys: Krysta Chatterjee Discharge: ������������������ Date of : 54 Report #: [id number] medications. PHYSICAL EXAMINATION: GENERAL: This is a well-developed, well-nourished black gentleman who appears his stated age. He is alert and orientated. HEENT: Normocephalic and atraumatic. Extraocular eye muscles are intact. MUSCULOSKELETAL: He walks with an antalgic gait. He uses a cane. Complains of some low back and right hip today. Also, some left shoulder pain but does have good range of motion. He does have some choreoathetoid movements that are present today. IMPRESSION: 1. Chronic pain treated with complex medical management using opioids, methadone, dispensed every 2 weeks. 2. Hypertension. 3. Liver disease. 4. Hepatitis C, treated in the past with [place]. We reviewed the fact that opiate medications are being used to provide analgesia adequate to support activities of daily living, not attempting to achieve a specific pain score on the 0-10 Visual Analog Scale. The current opiate medications are providing sufficient analgesia to allow the patient to participate in activities of daily living. The patient is not exhibiting any aberrant behavior suggestive of drug diversion. The patient is not having any adverse reactions to medications. The patient is not suffering from daytime somnolence or mental acuity changes. The patient is managing opiate-induced constipation with appropriate stir-rgg-lhcftmv agents and dietary considerations. The patient was counseled on concern for caution with operating a motor vehicle while using opiate medications. A physical exam was performed and the patient's functional status was evaluated. All patients with back pain were advised against the bed rest greater than 4 days and were advised to return to normal activities. Pain score assessment was noted and the treatment plan was reviewed with the patient. All current medications, both prescribed and OTC were reviewed and reconciled on the electronic medical record. Tobacco screening was accomplished and smoking cessation was advised when indicated. BMI was noted and diet/exercise modification was recommended for all patients following outside normal parameters. I reviewed with the patient today their responsibilities to safeguard prescription medications, reviewed their responsibility to utilize medications only as prescribed by the physician. They are to seek and receive pain medications only from 1 physician group ([facility]). They are to use 1 pharmacy and keep the clinic informed if they change pharmacies. Their responsibilities include making followup visits in a timely fashion and to avoid [address] [address] PAIN MANAGEMENT CONSULTATION Name: ARABELLA OMALLEY Room #: REG [facility] Chung#: [id number] Admission: 07/08/18 ������������������ Attend Phys: Krysta Chatterjee Discharge: ������������������ Date of : 54 Report #: [id number] abrupt discontinuation of medication usage. Their responsibilities further include bringing their medications (bottles from the pharmacy with residual pills) to the visit for possible confirmation of pill counts and the patient understands it is their responsibility to submit to random drug screens to ensure both that the medications prescribed are present, and that no other controlled substances are present. All prescriptions provided today were generated electronically. RECOMMENDATIONS: 1. We discussed treatment options with the patient today. The patient tells me that he is not using any alcohol today and not using any nonprescription medications that are illegal substances. He does complain about having to come every month for his medicine and only get every medicines every 2 months. I explained to the patient based on his history of heroin use, Dr. Stokes is reluctant to give him one month of medications at a time. He will continue to treat him every 2 weeks with prescriptions but see me every month. I explained to the patient that if he did not like this protocol that Dr. Stokes is following that he is welcome to go elsewhere for his medications and find another doctor that is willing to write for that, but this is how our doctor set to treat him as a patient. The patient verbalizes understanding. He said he is just not happy that, he can only get 2 months of medication at a time. 2. Script was given today for methadone 10 mg 1 p.o. t.i.d. #45 to release today and in 4 weeks. 3. The patient will be seen in 1 month time and an appointment was made. 4. Dr. Alejandro Franks did see the patient and collaborated with care today. ��������������������������������������������� ���������������������������������������� By: ��������������������������������������������� [id number] Krysta Chatterjee /yumiko
[2018-07-08 10:49] VITALS: BP 141/88
--- NOTE | 2018-07-08 11:19 | NUR ---
Pain Clinic Assessment: 1. History of Osteoarthritis: "ALL OVER" History of Rheumatoid Arthritis: Not Applicable 2. Height: 5 ft. 9 in. 175.3 cm. Weight: 178.6 lb. oz. 81.012 kg. Patient's BMI: 26.4 3. Vital Signs: BP: 141/88 Pulse: 83 Resp: 16 Temp: 02 Sat: 99 ECG Mon: 4. Pain Intensity: 8 5. Fall Risk: Dizziness: N Needs help standing or walking: Y Fallen in the last 3 months: N Fall risk comments: 6. Patient on Blood Thinner: None 7. History of Hypertension: Y 8. Opioid Therapy greater than 6 weeks: Y Opiate Contract Signed: 06/08/17 9. Risk Assessment Tool Provided: HIGH RISK 10. Functional Assessment Tool: 55/ 11. Recreational Drug Use: Past greater than 3 mos Drug Type: HEROIN Tobacco Use: Current Every Day Smoker Tobacco Type: Cigarettes Amount or Packs/day: 1 PPD How Many Years: 42 Alcohol Use: Past use Frequency: Quant:
== END ==
LOC: PAIN 07-07 07:37
DX: G89.29 Other chronic pain (principal); M54.5 Low back pain; I10 Essential (primary) hypertension; K76.9 Liver disease, unspecified; B19.20 Unspecified viral hepatitis C without hepatic coma; Z79.891 Long term (current) use of opiate analgesic; Z79.899 Other long term (current) drug therapy

== ENCOUNTER → 2018-08-11 | Outpatient (CLI) | payer OTHER ==
[~2018-08-11] VITALS: Ht 175.3 cm; Wt 82.2 kg
[~2018-08-11] MED LIST changes: +IBUPROFEN 200200 M1 PO
[2018-08-11 10:17] VITALS: BP 132/90
--- NOTE | 2018-08-11 10:26 | NUR ---
Pain Clinic Assessment: 1. History of Osteoarthritis: "ALL OVER" History of Rheumatoid Arthritis: Not Applicable 2. Height: 5 ft. 9 in. 175.3 cm. Weight: 181.2 lb. oz. 82.192 kg. Patient's BMI: 26.7 3. Vital Signs: BP: 132/90 Pulse: 80 Resp: 14 Temp: 02 Sat: 99 ECG Mon: 4. Pain Intensity: 8 5. Fall Risk: Dizziness: N Needs help standing or walking: N Fallen in the last 3 months: N Fall risk comments: 6. Patient on Blood Thinner: None 7. History of Hypertension: Y 8. Opioid Therapy greater than 6 weeks: Y Opiate Contract Signed: 06/08/17 9. Risk Assessment Tool Provided: HIGH RISK 10. Functional Assessment Tool: 55/70 11. Recreational Drug Use: Past greater than 3 mos Drug Type: Tobacco Use: Current Every Day Smoker Tobacco Type: Amount or Packs/day: How Many Years: Alcohol Use: Past use Frequency: Quant:
--- NOTE | 2018-08-12 09:17 | HPC ---
[facility] [address] [place] [address] PAIN MANAGEMENT CONSULTATION Name: ARABELLA OMALLEY Room #: REG Teri Moreau#: [id number] Admission: 08/11/18 ������������������ Attend Phys: Krysta Chatterjee Discharge: ������������������ Date of : 54 Report #: [id number] THIS REPORT FOR: //name// CC: Krysta Hartmann Barbara DATE OF SERVICE: 08/11/2018 CHIEF COMPLAINT: Chronic back pain and hip pain, right-sided. HISTORY OF PRESENT ILLNESS: The patient returns to the Pain Clinic today for refill of his medications. He tells me that he continues to have low back and right hip pain. He is also complaining of some left shoulder pain that is radiating down his left arm into his hand today. He tells me his pain score is an average of 8/10, which he is rating it today. His medications are helpful as well as heat, using pillows and resting. Activity makes his pain worse, standing and movement as well. He denies any constipation issues or any daytime sleepiness. He tells me that he does have a home health aide that comes every day that helps him with his cooking and cleaning. He does go to the grocery store he tells me by himself. They are not present with him today. He did drive himself here today. He would like a refill of his medications, which he finds are very helpful. ALLERGIES: GABAPENTIN. MEDICATIONS: Ibuprofen 200 mg 3 times a day, methadone 10 mg 3 times a day, Travatan drops at bedtime, Betimol drops daily, Flexeril 10 mg p.r.n., Zantac 150 mg b.i.d., Norvasc 5 mg daily, hydrochlorothiazide 25 mg daily. PQRS: 1. The patient has osteoarthritis in his knees and hips. He tells me other joints as well. He is not being treated for rheumatoid arthritis. 2. Height is 5 feet 9 inches, weight is 181. BMI is 26. 3. Vital signs: 132/90, pulse is 80, respirations 14, oxygen sat is 99. 4. Pain score is 8/10. 5. Fall risk. Denies dizziness, does not need help walking or standing, has not fallen in the last 3 months. 6. The patient is not on any blood thinners. He does take medicine for hypertension. 7. Opiate therapy is greater than 6 weeks. Therefore an opioid signed contract is on the chart. 8. His risk assessment is high. His functional assessment is 55/70. 9. Recreational drug use is greater than 3 months. He is a current smoker of cigarettes and he does not drink alcohol. We did check the prescription monitoring system. The patient is filling appropriately from doctors within our clinic. He fills them at 2-week intervals and [place] [address] PAIN MANAGEMENT CONSULTATION Name: ARABELLA OMALLEY [id number] Admission: 08/11/18 ������������������ Attend Phys: Krysta Chatterjee Discharge: ������������������ Date of : 54 Report #: [id number] today. He does have a recent drug screen on the chart that shows current medicines that we prescribed for him. PHYSICAL EXAMINATION: GENERAL: This is a well-developed, well-nourished black gentleman, who appears his stated age. He is alert and orientated. HEENT: Normocephalic, atraumatic. Extraocular eye muscles are intact. MUSCULOSKELETAL: He walks with an antalgic gait. He is using a cane today. He complains of low back pain that radiates into his right hip. His lower extremity strength is judged to be 5/5 in all major muscle groups. He is able to move from sitting to standing without difficulty. ASSESSMENT: 1. Chronic pain treated with complex medical management using opioids. 2. Hypertension. 3. Liver disease. 4. Hepatitis C. We reviewed the fact that opiate medications are being used to provide analgesia adequate to support activities of daily living, not attempting to achieve a specific pain score on the 0-10 Visual Analog Scale. The current opiate medications are providing sufficient analgesia to allow the patient to participate in activities of daily living. The patient is not exhibiting any aberrant behavior suggestive of drug diversion. The patient is not having any adverse reactions to medications. The patient is not suffering from daytime somnolence or mental acuity changes. The patient is managing opiate-induced constipation with appropriate wtfz-etu-guiwdec agents and dietary considerations. The patient was counseled on concern for caution with operating a motor vehicle while using opiate medications. A physical exam was performed and the patient's functional status was evaluated. All patients with back pain were advised against the bed rest greater than 4 days and were advised to return to normal activities. Pain score assessment was noted and the treatment plan was reviewed with the patient. All current medications, both prescribed and OTC were reviewed and reconciled on the electronic medical record. Tobacco screening was accomplished and smoking cessation was advised when indicated. BMI was noted and diet/exercise modification was recommended for all patients following outside normal parameters. I reviewed with the patient today their responsibilities to safeguard prescription medications, reviewed their responsibility to utilize medications only as prescribed by the physician. They are to seek and receive pain medications only from 1 physician group ( [facility]). They are to use 1 pharmacy and keep the clinic informed if they change pharmacies. Their responsibilities include making followup visits in a timely fashion and to avoid [facility] [address] [place] [address] PAIN MANAGEMENT CONSULTATION Name: ARABELLA OMALLEY Room #: [facility].#: [id number] Admission: 08/11/18 ������������������ Attend Phys: Krysta Chatterjee Discharge: ������������������ Date of : 54 Report #: [id number] abrupt discontinuation of medication usage. Their responsibilities further include bringing their medications (bottles from the pharmacy with residual pills) to the visit for possible confirmation of pill counts and the patient understands it is their responsibility to submit to random drug screens to ensure both that the medications prescribed are present, and that no other controlled substances are present. All prescriptions provided today were generated electronically. PLAN: 1. We discussed treatment options with the patient today. We will refill his methadone, which is 10 mg 1 tablet 3 times a day, #45 tablets for today and release again in 2 weeks' time period. This is for his insurance purposes as what we were told that he gets them for one month at a time, that only every 2-week intervals to be released these medications. 2. The patient seen by Dr. Adam Stokes, who also collaborated in care today. Appointment made for 1 month. Follow up time to see myself again in one month. The patient is agreeable with plan of care today. ��������������������������������������������� <ELECTRONICALLY SIGNED> ���������������������������������������� By: Krysta Chatterjee ��������������������������������������������� 08/12/18 0917 1418 8 Krysta Chatterjee /yumiko
== END ==
LOC: PAIN 08-05 13:31
DX: I10 Essential (primary) hypertension (principal); B19.20 Unspecified viral hepatitis C without hepatic coma; K76.9 Liver disease, unspecified; G89.29 Other chronic pain; Z88.8 Allergy status to other drugs, medicaments and biological substances; Z79.899 Other long term (current) drug therapy

== ENCOUNTER → 2018-09-08 | Outpatient (CLI) | payer OTHER ==
[~2018-09-08] VITALS: Ht 175.3 cm; Wt 80.3 kg
[~2018-09-08] MED LIST changes: +ASPIRIN81 M2 PO; +BRILINTA90 MG PO; +LIPITOR80 MG PO; +METOPROLOL TART25 MG PO
--- NOTE | 2018-09-08 09:56 | NUR ---
Pain Clinic Assessment: 1. History of Osteoarthritis: "ALL OVER" History of Rheumatoid Arthritis: Not Applicable 2. Height: ft. in. cm. Weight: lb. oz. kg. Patient's BMI: 3. Vital Signs: BP: Pulse: Resp: Temp: 02 Sat: ECG Mon: 4. Pain Intensity: 7 5. Fall Risk: Dizziness: N Needs help standing or walking: N Fallen in the last 3 months: N Fall risk comments: 6. Patient on Blood Thinner: None 7. History of Hypertension: Y 8. Opioid Therapy greater than 6 weeks: Y Opiate Contract Signed: 06/08/17 9. Risk Assessment Tool Provided: HIGH RISK 10. Functional Assessment Tool: 55/70 11. Recreational Drug Use: Past greater than 3 mos Drug Type: Tobacco Use: Current Every Day Smoker Tobacco Type: Amount or Packs/day: How Many Years: Alcohol Use: Past use Frequency: Quant:
[2018-09-08 10:19] VITALS: BP 107/67
--- NOTE | 2018-09-08 11:59 | NUR ---
Pain Clinic Assessment: 1. History of Osteoarthritis: "ALL OVER" History of Rheumatoid Arthritis: Not Applicable 2. Height: 5 ft. 9 in. 175.3 cm. Weight: 177.0 lb. oz. 80.287 kg. Patient's BMI: 26.1 3. Vital Signs: BP: 107/67 Pulse: 84 Resp: 16 Temp: 02 Sat: 94 ECG Mon: 4. Pain Intensity: 7 5. Fall Risk: Dizziness: N Needs help standing or walking: N Fallen in the last 3 months: N Fall risk comments: 6. Patient on Blood Thinner: None 7. History of Hypertension: Y 8. Opioid Therapy greater than 6 weeks: Y Opiate Contract Signed: 06/08/17 9. Risk Assessment Tool Provided: HIGH RISK 10. Functional Assessment Tool: 55/ 11. Recreational Drug Use: Past greater than 3 mos Drug Type: Tobacco Use: Current Every Day Smoker Tobacco Type: Amount or Packs/day: How Many Years: Alcohol Use: Past use Frequency: Quant:
--- NOTE | 2018-09-09 13:30 | HPC ---
[facility] [place] [address] PAIN MANAGEMENT CONSULTATION Name: ARABELLA OMALLEY Room #: REG NBA Moreau#: [id number] Admission: 09/08/18 ������������������ Attend Phys: Krysta Chatterjee Discharge: ������������������ Date of : 54 Report #: [id number] THIS REPORT FOR: //name// CC: Krysta Hartmann Barbara DATE OF SERVICE: 09/08/2018 CHIEF COMPLAINT: Chronic back pain and hip pain on his right side, left shoulder pain. HISTORY OF PRESENT ILLNESS: This is a 68-year-old gentleman who returns to the pain clinic today for refill of his medication. He continues to have right hip pain and low back pain. He tells me today he is also having left shoulder pain that radiates into his left arm and hand. He rates his pain score as 7/10 today, mostly constant, dull, aching pain, but occasionally stabbing pain. He said it is worse with cold weather and activity, better with his medications and heat. He tells me he does not have any problems with constipation, he does take some fxba-wnw-kvkalpp medicines. He would like a refill of his medications today. The patient questions about Narcan prescription. He tells me that his pharmacist and [employer] have called him and talked to him about obtaining a Narcan prescription from Dr. Stokes when he sees him at his next visit. He does not think that this is necessary for him, but he is questioning if he should have a prescription and have some at home since they have brought it to his attention. ALLERGIES: GABAPENTIN. MEDICATIONS: Chantix, Brilinta 90 mg b.i.d., Lipitor 80 mg daily, metoprolol 25 mg daily, 81 mg aspirin, methadone 10 mg 3 times a day, Travatan drops at bedtime, Betimol drops daily, Flexeril p.r.n., Zantac 150 mg b.i.d., amlodipine 5 mg daily and hydrochlorothiazide 25 mg daily. PQRS: 1. He has osteoarthritis in his knees, hips and shoulders. He denies any rheumatoid arthritis. 2. Height is 5 feet 9 inches, weight is 181, BMI is 26. 3. Vital Signs: Blood pressure 126/90, pulse is 82, respirations 14, oxygen sat is 99. 4. Pain score is 7. 5. Fall risk: Denies dizziness. Does not need help with walking or standing. Has not fallen in the last 3 months. 6. The patient is on blood thinner, Brilinta. He does take medicines for hypertension. 7. Opioid therapy is greater than 6 weeks; therefore, [place] [address] PAIN MANAGEMENT CONSULTATION Name: ARABELLA OMALLEY Room #: ELIECER Moreau#: [id number] Admission: 09/08/18 ������������������ Attend Phys: Krysta Chatterjee Discharge: ������������������ Date of : 54 Report #: [id number] is on the chart. 8. Risk assessment tool is highly. Functional assessment is 55/70. 9. Recreational drug use, in the past. He is a current smoker and also using Chantix to try and decrease smoking. He had alcohol use in the past. We did check the prescription monitoring system. The patient is filling appropriately from Dr. Stokes in 2-week intervals. There is a drug screen on the chart on this patient. PHYSICAL EXAMINATION: GENERAL: This is a well-developed, well-nourished black gentleman who appears his stated age. He is alert and orientated placing his pain score today at 7/10. HEENT: Normocephalic, atraumatic. Extraocular eye muscles are intact. Mucous membranes are moist. MUSCULOSKELETAL: He walks with an antalgic gait. He complains of low back pain that radiates into his right hip, into his upper thigh. Also complains of left shoulder pain that radiates into his left arm. His lower extremity strength is judged to be 5/5 in all major muscle groups and his upper extremity strength judged to be 5/5 in all major muscle groups. He is able to move from sitting to standing without difficulty. IMPRESSION: 1. Chronic pain, treated with complex medical management using opioids. 2. Hypertension. 3. Liver disease. 4. Hepatitis C. We reviewed the fact that opiate medications are being used to provide analgesia adequate to support activities of daily living, not attempting to achieve a specific pain score on the 0-10 Visual Analog Scale. The current opiate medications are providing sufficient analgesia to allow the patient to participate in activities of daily living. The patient is not exhibiting any aberrant behavior suggestive of drug diversion. The patient is not having any adverse reactions to medications. The patient is not suffering from daytime somnolence or mental acuity changes. The patient is managing opiate-induced constipation with appropriate zhhs-qia-faiwlza agents and dietary considerations. The patient was counseled on concern for caution with operating a motor vehicle while using opiate medications. A physical exam was performed and the patient's functional status was evaluated. All patients with back pain were advised against the bed rest greater than 4 days and were advised to return to normal activities. Pain score assessment was noted and the treatment plan was reviewed with the patient. All current medications, both prescribed and OTC were reviewed and reconciled on the electronic medical record. Tobacco screening was accomplished and smoking [address] [place] [address] PAIN MANAGEMENT CONSULTATION Name: ARABELLA OMALLEY Room #: REG [facility]#: [id number] Admission: 09/08/18 ������������������ Attend Phys: Krysta Chatterjee Discharge: ������������������ Date of : 54 Report #: [id number] cessation was advised when indicated. BMI was noted and diet/exercise modification was recommended for all patients following outside normal parameters. I reviewed with the patient today their responsibilities to safeguard prescription medications, reviewed their responsibility to utilize medications only as prescribed by the physician. They are to seek and receive pain medications only from 1 physician group ( [facility]). They are to use 1 pharmacy and keep the clinic informed if they change pharmacies. Their responsibilities include making followup visits in a timely fashion and to avoid abrupt discontinuation of medication usage. Their responsibilities further include bringing their medications (bottles from the pharmacy with residual pills) to the visit for possible confirmation of pill counts and the patient understands it is their responsibility to submit to random drug screens to ensure both that the medications prescribed are present, and that no other controlled substances are present. All prescriptions provided today were generated electronically. PLAN: 1. We discussed treatment options with the patient today. The patient is doing quite well on his current methadone regimen. Scripts given today for methadone 10 mg t.i.d. #45 to be released today and 4-week. 2. We did discuss Narcan as well as Dr. Stokes was present with the patient to discuss Narcan that his pharmacy and [employer] wanted him to address. At this time, we do not feel that this is appropriate for the patient. He has been stable on this current medication for quite some time with no signs of abuse or aberrant behavior. We will discuss this at our team conference and see if they feel that this is the patient that required this prescription. It is the belief of this clinic that if the patient is on a high enough level of narcotics and we suspect aberrant behavior, that we decrease his medication as opposed to giving him a Narcan prescription. We will address this at his next visit as well. The patient was seen in collaboration with Dr. Stokes who was also present today. Appointment made for 1 month for followup. ��������������������������������������������� <ELECTRONICALLY SIGNED> ���������������������������������������� By: Krysta Chatterjee ��������������������������������������������� 09/09/18 1330 [id number] Krysta Chatterjee /nt
== END ==
LOC: PAIN 07:08
DX: G89.29 Other chronic pain (principal); M54.5 Low back pain; M25.551 Pain in right hip; I10 Essential (primary) hypertension; K76.9 Liver disease, unspecified; B19.20 Unspecified viral hepatitis C without hepatic coma; Z79.891 Long term (current) use of opiate analgesic; Z79.899 Other long term (current) drug therapy

== ENCOUNTER → 2018-10-14 | Outpatient (CLI) | payer OTHER ==
[~2018-10-14] VITALS: Ht 175.3 cm; Wt 78.1 kg
[~2018-10-14] MED LIST changes: +NARCAN4 MG NASAL
[2018-10-14 14:35] VITALS: BP 116/76
--- NOTE | 2018-10-14 14:48 | NUR ---
Pain Clinic Assessment: 1. History of Osteoarthritis: "ALL OVER" History of Rheumatoid Arthritis: Not Applicable 2. Height: 5 ft. 9 in. 175.3 cm. Weight: 172.2 lb. oz. 78.109 kg. Patient's BMI: 25.4 3. Vital Signs: BP: 116/76 Pulse: 80 Resp: 14 Temp: 02 Sat: 100 ECG Mon: 4. Pain Intensity: 7 5. Fall Risk: Dizziness: N Needs help standing or walking: N Fallen in the last 3 months: N Fall risk comments: 6. Patient on Blood Thinner: None 7. History of Hypertension: Y 8. Opioid Therapy greater than 6 weeks: Y Opiate Contract Signed: 06/08/17 9. Risk Assessment Tool Provided: HIGH RISK 10. Functional Assessment Tool: 55/ 11. Recreational Drug Use: Past greater than 3 mos Drug Type: Tobacco Use: Current Every Day Smoker Tobacco Type: Cigarettes Amount or Packs/day: 6-7 CIGS How Many Years: Alcohol Use: Past use Frequency: Quant:
--- NOTE | 2018-10-18 07:30 | HPC ---
[facility] [place] [address] PAIN MANAGEMENT CONSULTATION Name: ARABELLA OMALLEY Room #: REG Teri Moreau#: [id number] Admission: 10/14/18 ������������������ Attend Phys: Krysta Chatterjee Discharge: ������������������ Date of : 54 Report #: [id number] THIS REPORT FOR: //name// CC: Krysta Jimenez DATE OF SERVICE: 10/14/2018 CHIEF COMPLAINT: Chronic back pain and hip pain. HISTORY OF PRESENT ILLNESS: This is a 68-year-old gentleman who returns to the pain clinic today for a refill of his medications for his ongoing low back and right hip pain. He does have some left shoulder pain that occasionally radiates down his left arm into his hand. He tells me his pain score is a 7/10, which is a fairly average number for his pain. It is a dull, achy, stabbing pain, worse with cold weather, activity and movement, but the medications and resting or sleeping on his left side. He was unable to come last week due to a cold that he had, he was quite sick. He tells me that he has been using his medication sparingly to get to this appointment. He tells me he does not have any problems with constipation, is diet controlled. The patient tells me overall he is feeling much better than he used to since he has stopped his ibuprofen. He said his stomach is feeling much better. He did not have the pain that he used to there. He did not realize that ibuprofen was causing them. ALLERGIES: GABAPENTIN. CURRENT MEDICATIONS: Methadone 10 mg 3 times a day, Chantix, Brilinta 90 mg b.i.d., Lipitor 80 mg daily, metoprolol 25 mg daily, aspirin 81 mg daily, Flexeril 10 mg at bedtime, eyedrops, Zantac 150 mg b.i.d., amlodipine 5 mg daily and hydrochlorothiazide 25 mg daily. PQRS: 1. He has a history of osteoarthritis in his knees, hips and shoulders. He denies any rheumatoid arthritis. 2. Height is 5 feet 9 inches, weight 172, BMI is 25. 3. Vital signs: Blood pressure 116/76, pulse is 80, respirations 14, oxygen sat 100. 4. Pain score 7/10. 5. Denies dizziness. Does not need help walking or standing. He has not fallen in the last 3 months. 6. The patient is not on any blood thinners. Does take medicine for hypertension. 7. Opiate therapy is greater than 6 weeks; therefore, an opiate signed contract is on the chart. Risk assessment tool is high. Functional assessment is 55/70. [place] [address] PAIN MANAGEMENT CONSULTATION Name: ARABELLA OMALLEY Room #: REG NBA Moreau#: [id number] Admission: 10/14/18 ������������������ Attend Phys: Krysta Chatterjee Discharge: ������������������ Date of : 54 Report #: [id number] 8. Recreational drug use in the past. Still smokes as well as using Chantix and does not use alcohol. Prescription monitoring system. He is filling appropriately from Dr. Stokes and is due for his medications today. There is a drug screen in the past as well on the chart. PHYSICAL EXAMINATION: GENERAL: This is a well-developed, well-nourished black gentleman who appears his stated age, placing his current pain score at 7/10 today. He is alert and orientated and his speech is fluent. HEENT: Normocephalic, atraumatic. Extraocular eye muscles are intact. Mucous membranes are moist. MUSCULOSKELETAL: Complains of low back pain that radiates into his right hip, into his upper thigh and complains of left shoulder pain that occasionally radiates into his hand. His upper and lower extremity strength is judged to be 5/5 in all major muscle groups. He is able to move from sitting to standing without any difficulty. He does walk with a slightly antalgic gait. IMPRESSION: 1. Chronic pain, treated with complex medical management using opioids. 2. Hypertension. 3. Liver disease. 4. Hepatitis C. 5. Osteoarthritis. We reviewed the fact that opiate medications are being used to provide analgesia adequate to support activities of daily living, not attempting to achieve a specific pain score on the 0-10 Visual Analog Scale. The current opiate medications are providing sufficient analgesia to allow the patient to participate in activities of daily living. The patient is not exhibiting any aberrant behavior suggestive of drug diversion. The patient is not having any adverse reactions to medications. The patient is not suffering from daytime somnolence or mental acuity changes. The patient is managing opiate-induced constipation with appropriate btnf-avc-iiaazkl agents and dietary considerations. The patient was counseled on concern for caution with operating a motor vehicle while using opiate medications. A physical exam was performed and the patient's functional status was evaluated. All patients with back pain were advised against the bed rest greater than 4 days and were advised to return to normal activities. Pain score assessment was noted and the treatment plan was reviewed with the patient. All current medications, both prescribed and OTC were reviewed and reconciled on the electronic medical record. Tobacco screening was accomplished and smoking cessation was advised when indicated. BMI was noted and diet/exercise modification was recommended for all patients following outside normal [address] [address] PAIN MANAGEMENT CONSULTATION Name: ARABELLA OMALLEY Room #: REG [facility]#: [id number] Admission: 10/14/18 ������������������ Attend Phys: Krysta Chatterjee Discharge: ������������������ Date of : 54 Report #: [id number] parameters. I reviewed with the patient today their responsibilities to safeguard prescription medications, reviewed their responsibility to utilize medications only as prescribed by the physician. They are to seek and receive pain medications only from 1 physician group ( [facility]). They are to use 1 pharmacy and keep the clinic informed if they change pharmacies. Their responsibilities include making followup visits in a timely fashion and to avoid abrupt discontinuation of medication usage. Their responsibilities further include bringing their medications (bottles from the pharmacy with residual pills) to the visit for possible confirmation of pill counts and the patient understands it is their responsibility to submit to random drug screens to ensure both that the medications prescribed are present, and that no other controlled substances are present. All prescriptions provided today were generated electronically. PLAN: 1. We discussed treatment options with the patient today. The patient had mentioned Narcan in the past because his pharmacist and his insurance company, [employer], was requesting him to have this at home. The patient was not really wanting to have this. He says he lives alone and he does not know how he would be able to administer Narcan if he had overdosed and we agreed that if he is taking his medication as prescribed, he would not need to use Narcan. But in team meeting, we decided that we would let him have a prescription just in case and this will satisfy his insurance company. We do not forsee the patient will be needing to use the Narcan. He does take his medication very appropriately in a timely fashion, but script written today for Narcan spray 4 mg. 2. Scripts given for methadone 10 mg t.i.d., #45, for release today and 4 weeks. The patient gets one month of medications, though at 2-week intervals per his insurance guidelines. 3. The patient will return for an appointment in 1 month. The patient is seen today in collaboration with Dr. Alejandro Franks. ��������������������������������������������� <ELECTRONICALLY SIGNED> ���������������������������������������� By: Krysta Chatterjee ��������������������������������������������� 10/18/18 0730 [id number] Krysta Chatterjee /nt
== END ==
LOC: PAIN 10-07 13:39
DX: M54.9 Dorsalgia, unspecified (principal); G89.29 Other chronic pain; I10 Essential (primary) hypertension; K76.9 Liver disease, unspecified; B19.20 Unspecified viral hepatitis C without hepatic coma; M19.90 Unspecified osteoarthritis, unspecified site; Z79.891 Long term (current) use of opiate analgesic; Z79.899 Other long term (current) drug therapy

== ENCOUNTER → 2018-12-08 | Outpatient (CLI) | payer OTHER ==
--- NOTE | 2018-12-08 11:02 | NUR ---
Pain Clinic Assessment: 1. History of Osteoarthritis: "ALL OVER" History of Rheumatoid Arthritis: Not Applicable 2. Height: ft. in. cm. Weight: lb. oz. kg. Patient's BMI: 3. Vital Signs: BP: Pulse: Resp: Temp: 02 Sat: ECG Mon: 4. Pain Intensity: 8 5. Fall Risk: Dizziness: N Needs help standing or walking: N Fallen in the last 3 months: N Fall risk comments: 6. Patient on Blood Thinner: BRILINTA 7. History of Hypertension: Y 8. Opioid Therapy greater than 6 weeks: Y Opiate Contract Signed: 06/08/17 9. Risk Assessment Tool Provided: HIGH RISKY 10. Functional Assessment Tool: 55/70 11. Recreational Drug Use: Past greater than 3 mos Drug Type: Tobacco Use: Current Every Day Smoker Tobacco Type: Amount or Packs/day: How Many Years: Alcohol Use: Past use Frequency: Quant:
--- NOTE | 2018-12-09 15:54 | HPC ---
[facility] [place] [address] PAIN MANAGEMENT CONSULTATION Name: ARABELLA OMALLEY Room #: REG [facility] Lizzteh#: [id number] Admission: 12/08/18 ������������������ Attend Phys: Krysta Chatterjee Discharge: ������������������ Date of : 54 Report #: [id number] THIS REPORT FOR: //name// CC: Krysta Hartmann Barbara DATE OF SERVICE: 12/08/2018 CHIEF COMPLAINT: Chronic back pain and right hip pain. HISTORY OF PRESENT ILLNESS: This is a 68-year-old gentleman who returns to the pain clinic today for refill of his medications that he uses to help treat his ongoing low back pain and his right hip pain. He tells me his right hip has been aggravated recently. He is unsure if it is the weather or if he did something to make it start hurting worse. He tells me when he is sitting down, his lower back is bothering him more than usual. The patient also complains of some left shoulder pain that does radiate down his arm, into his hand. It is a stabbing pain. The patient reports his pain score today is an 8/10, it is worse with activity, standing and movement, but with the medications, he does find helpful as well as repositioning and heat. ALLERGIES: GABAPENTIN. CURRENT LIST OF MEDICATIONS: Methadone 10 mg 3 times a day, Narcan if needed, Chantix daily, Brilinta 90 mg b.i.d., atorvastatin 80 mg daily, metoprolol 25 mg daily, 81 mg aspirin, Travatan drop, Flexeril 10 mg 3 times a day, Zantac 150 mg b.i.d., amlodipine 5 mg daily, and hydrochlorothiazide 25 mg daily. PQRS: 1. He has a history of osteoarthritis in his knees, hips, and shoulders. He denies any rheumatoid arthritis. 2. Height is 5 feet 9 inches, weight is 172, BMI is 25. 3. Vital signs; unsure. 4. Pain score is 8/10. 5. Fall risk, denies dizziness, does not need help walking or standing, has not fallen in the last 3 months. 6. The patient is on Brilinta. He also takes medicine for hypertension. 7. Opioid therapy is greater than 6 weeks; therefore, an opioid signed contract is on the chart. 8. Her risk assessment is high. His functional assessment is 55/70. 9. Recreational drug use in the past. He is a current smoker and does not drink alcohol. We did check the prescription monitoring system. The patient is filling appropriately for his medications from Dr. Stokes. We will check a random drug screen on the patient today. [address] [address] PAIN MANAGEMENT CONSULTATION Name: ARABELLA OMALLEY Room #: REG [facility] Moreau#: [id number] Admission: 12/08/18 ������������������ Attend Phys: Krysta Chatterjee Discharge: ������������������ Date of : 54 Report #: [id number] PHYSICAL EXAMINATION: GENERAL: This is a well-developed, well-nourished black gentleman who appears his stated age of [age] years old. He is placing his current pain score of 8/10 today. He is alert and orientated. HEENT: Normocephalic, atraumatic. Extraocular eye muscles are intact. Mucous membranes are moist. MUSCULOSKELETAL: The patient complains of some low back pain that radiates into his right hip. It does not radiate past his hip today. He also complains of left shoulder pain with extension and rotation of his shoulder. His upper and lower extremities strength judged to be 5/5 in all major muscle groups. He is able to move from sitting to standing without any difficulty, but he does walk with a slightly antalgic gait. IMPRESSION: 1. Chronic pain, treated with complex medical management using opioids. 2. Hypertension. 3. Liver disease. 4. Hepatitis C. 5. Osteoarthritis. We reviewed the fact that opiate medications are being used to provide analgesia adequate to support activities of daily living, not attempting to achieve a specific pain score on the 0-10 Visual Analog Scale. The current opiate medications are providing sufficient analgesia to allow the patient to participate in activities of daily living. The patient is not exhibiting any aberrant behavior suggestive of drug diversion. The patient is not having any adverse reactions to medications. The patient is not suffering from daytime somnolence or mental acuity changes. The patient is managing opiate-induced constipation with appropriate [id number]-mpvoeqs agents and dietary considerations. The patient was counseled on concern for caution with operating a motor vehicle while using opiate medications. A physical exam was performed and the patient's functional status was evaluated. All patients with back pain were advised against the bed rest greater than 4 days and were advised to return to normal activities. Pain score assessment was noted and the treatment plan was reviewed with the patient. All current medications, both prescribed and OTC were reviewed and reconciled on the electronic medical record. Tobacco screening was accomplished and smoking cessation was advised when indicated. BMI was noted and diet/exercise modification was recommended for all patients following outside normal parameters. I reviewed with the patient today their responsibilities to safeguard prescription medications, reviewed their responsibility to utilize medications only as prescribed by the physician. They are to seek and receive pain [address] [address] PAIN MANAGEMENT CONSULTATION Name: ARABELLA OMALLEY Room #: REG [facility]#: [id number] Admission: 12/08/18 ������������������ Attend Phys: Krysta Chatterjee Discharge: ������������������ Date of : 54 Report #: [id number] medications only from 1 physician group ( [facility]). They are to use 1 pharmacy and keep the clinic informed if they change pharmacies. Their responsibilities include making followup visits in a timely fashion and to avoid abrupt discontinuation of medication usage. Their responsibilities further include bringing their medications (bottles from the pharmacy with residual pills) to the visit for possible confirmation of pill counts and the patient understands it is their responsibility to submit to random drug screens to ensure both that the medications prescribed are present, and that no other controlled substances are present. All prescriptions provided today were generated electronically. PLAN: 1. We discussed treatment options with the patient today. The patient finds his methadone very beneficial in helping control his pain. Scripts given today for 10 mg 3 times a day, #45 to release today and again in 2 weeks. 2. The patient tells me he did see his primary doctor yesterday who did start him on a memory "pill." The patient is unsure of the medication name. He is yet to pick it up from the pharmacy. He tells me he had been having some problems remembering certain things lately and they thought this may be beneficial. He will let us know the name of the medication at his next visit. 3. We did check the urine drug screen randomly today. 4. The patient is seen with Dr. Lenin Stokes who collaborated care and did see him today. The patient will follow up in 1 month. ��������������������������������������������� <ELECTRONICALLY SIGNED> ���������������������������������������� By: Krysta Chatterjee ��������������������������������������������� 12/09/18 1554 [id number] Krysta Chatterjee /nt
== END ==
LOC: PAIN 06:50
DX: M25.551 Pain in right hip (principal); M54.9 Dorsalgia, unspecified; G89.29 Other chronic pain; I10 Essential (primary) hypertension; K76.9 Liver disease, unspecified; B19.20 Unspecified viral hepatitis C without hepatic coma; M19.90 Unspecified osteoarthritis, unspecified site; F11.90 Opioid use, unspecified, uncomplicated; Z79.899 Other long term (current) drug therapy; Z79.82 Long term (current) use of aspirin; Z88.8 Allergy status to other drugs, medicaments and biological substances

== ENCOUNTER → 2019-01-14 | Outpatient (CLI) | payer OTHER ==
[~2019-01-14] VITALS: Ht 175.3 cm; Wt 77.8 kg
--- NOTE | ~2019-01-14 | HPC ---
[facility] [address] [place] [address] PAIN MANAGEMENT CONSULTATION Name: ARABELLA OMALLEY Room #: REG [facility] Moreau#: [id number] Admission: 01/14/19 ������������������ Attend Phys: Adenike Stokes MD Discharge: ������������������ Date of : 54 Report #: [id number] THIS REPORT FOR: //name// CC: Adenike Jimenez DATE OF SERVICE: 01/14/2019 CHIEF COMPLAINT: Here for medications. I have stopped smoking for about 3 weeks. HISTORY: The patient is a 68-year-old gentleman who has been followed in the pain clinic because of chronic ongoing back pain. Also, has pain in his left hip. She has pain in his low back as well as down to his right hip. Also, has some pain in the left shoulder and pain in his left arm radiating down to his left hand. He rates that pain as an 8/10. Notes that activity, standing and movement can exacerbate his discomfort. Uses heat, rest and tries to avoid sleeping on the affected side. Props his arm up with pillows to help decrease her discomfort. He feels that his medications continue to be helpful, has returned today for renewal of his medications. ALLERGIES: MORPHINE. CURRENT MEDICATIONS: Methadone 10 mg t.i.d., Narcan p.r.n. as needed, Chantix daily, Brilinta 90 mg b.i.d., Lipitor 80 mg daily, metoprolol 25 mg, aspirin 81 mg, Travatan drop, Flexeril 10 mg t.i.d., Zantac 150 mg b.i.d., amlodipine 5 mg daily, hydrochlorothiazide 25 mg daily. PAIN CLINIC ASSESSMENT AND PQRS: 1. The patient has some arthritic pains in a number of joints including his shoulders and complains of some hip discomfort. 2. The patient is not being treated for rheumatoid arthritis. 3. Height 5 feet 9 inches, weight 171 pounds, BMI is 25.3. 4. Vital Signs: Blood pressure is 116/78, pulse 80, respiratory rate 14, room air saturation 99%. 5. Pain intensity, 12/18. 6. Fall history. The patient has not fallen in the last 3 months. 7. Blood thinner. The patient is on Brilinta. 8. History of hypertension. The patient is being treated for hypertension. 9. Opioids greater than 6 weeks. The patient receives medications from one source, the pain clinic. 10. Opioid use, high and risky. 11. Functional assessment tool, 55/70. 12. Recreational drug use. The patient has not used recreational drugs since we saw him last. 13. Tobacco: The patient has stopped smoking about 3 months ago, is now using [address] [address] PAIN MANAGEMENT CONSULTATION Name: ARABELLA OMALLEY [id number] Admission: 01/14/19 ������������������ Attend Phys: Adenike Stokes MD Discharge: ������������������ Date of : 54 Report #: [id number] Chantix. 14. Alcohol: The patient denies use of alcohol at this point. PHYSICAL EXAMINATION: GENERAL: The patient is a well-developed, well-nourished, black male. Appears his stated age. He seems somewhat older than his stated age. He is alert and oriented x 3. His affect is appropriate. Speech is fluent. HEENT: Normocephalic, atraumatic. Extraocular eye muscles intact. Sclerae slightly brown. NECK: Without any JVD. HEART: Regular rate. ABDOMEN: Nontender. LUNGS: Generally clear. EXTREMITIES: Upper extremity muscle strength, the patient complains of pain and discomfort in the left shoulder. He has some pain and discomfort in his low back as well as pain in his right hip. The patient without significant scoliosis, kyphosis or lordosis. Walks with a slight antalgic gait. IMPRESSION: 1. Chronic pain, treated with complex medical management of opioid medications. 2. Hypertension. 3. Liver disease. 4. Hepatitis. 5. Osteoarthritis. 6. History of myocardial infarction. RECOMMENDATIONS: We discussed treatment options with the patient. At this juncture, we will continue with his medications. We have explained to the patient the seriousness of continuing to adhere to the pain clinic requirements. He states that he has taken the medication as prescribed. He does not have any problems with the medications. He continues to try to increase his level of activity. He states that he did have myocardial infarct and continue to monitor and try to increase his activity as tolerated. He will continue with the medications, which have been provided. The patient has Narcan, should he need it. The patient will continue with Flexeril to help with the muscle spasms, a script for his medications has been written. He will call us if he has any concerns. We would like to thank you for letting us participate in his care. We hope he continues to improve. The patient is on a schedule where he is evaluated for appropriate use of his medications to drug testing. ��������������������������������������������� ���������������������������������������� By: ��������������������������������������������� [id number] Adenike Stokes MD /JARROD
[2019-01-14 11:06] VITALS: BP 116/78
--- NOTE | 2019-01-14 11:27 | NUR ---
Pain Clinic Assessment: 1. History of Osteoarthritis: "ALL OVER" History of Rheumatoid Arthritis: Not Applicable 2. Height: 5 ft. 9 in. 175.3 cm. Weight: 171.6 lb. oz. 77.837 kg. Patient's BMI: 25.3 3. Vital Signs: BP: 116/78 Pulse: 80 Resp: 14 Temp: 02 Sat: 99 ECG Mon: 4. Pain Intensity: 8 5. Fall Risk: Dizziness: N Needs help standing or walking: Y Fallen in the last 3 months: N Fall risk comments: 6. Patient on Blood Thinner: BRILINTA 7. History of Hypertension: Y 8. Opioid Therapy greater than 6 weeks: Y Opiate Contract Signed: 06/08/17 9. Risk Assessment Tool Provided: HIGH RISKY 10. Functional Assessment Tool: / 11. Recreational Drug Use: Past greater than 3 mos Drug Type: Tobacco Use: Former Smoker Tobacco Type: Amount or Packs/day: How Many Years: Alcohol Use: Past use Frequency: Quant:
== END ==
LOC: PAIN 01-07 09:37
DX: G89.29 Other chronic pain (principal); I25.2 Old myocardial infarction; K75.9 Inflammatory liver disease, unspecified

== ENCOUNTER → 2019-02-11 | Outpatient (CLI) | payer OTHER ==
[~2019-02-11] VITALS: Ht 175.3 cm; Wt 80.4 kg
[2019-02-11 08:45] VITALS: BP 119/84
--- NOTE | 2019-02-11 08:57 | NUR ---
Pain Clinic Assessment: 1. History of Osteoarthritis: "ALL OVER" SPINE History of Rheumatoid Arthritis: Not Applicable 2. Height: 5 ft. 9 in. 175.3 cm. Weight: 177.2 lb. oz. 80.377 kg. Patient's BMI: 26.2 3. Vital Signs: BP: 119/84 Pulse: 85 Resp: 14 Temp: 02 Sat: 100 ECG Mon: 4. Pain Intensity: 8-9 5. Fall Risk: Dizziness: N Needs help standing or walking: N Fallen in the last 3 months: N Fall risk comments: 6. Patient on Blood Thinner: BRILINTA 7. History of Hypertension: Y 8. Opioid Therapy greater than 6 weeks: Y Opiate Contract Signed: 06/08/17 9. Risk Assessment Tool Provided: HIGH RISK 10. Functional Assessment Tool: 11. Recreational Drug Use: Past greater than 3 mos Drug Type: Tobacco Use: Former Smoker Tobacco Type: Amount or Packs/day: How Many Years: Alcohol Use: Past use Frequency: Quant:
--- NOTE | 2019-02-18 08:26 | HPC ---
[facility] [place] [address] PAIN MANAGEMENT CONSULTATION Name: ARABELLA OMALLEY Room #: REG NBA Moreau#: [id number] Admission: 02/11/19 Attend Phys: Adenike Stokes MD Discharge: Date of : 54 Report #: [id number] THIS REPORT FOR: //name// CC: Adenike Jimenez DATE OF SERVICE: 02/11/2019 HISTORY: The patient is a 67-year-old gentleman who has been followed in the Pain Clinic. He has a quite complex history. He is being treated with opioid medications to help his pain control. He has had multiple back surgeries. He is status post right hip arthroplasty and has had bilateral total knee arthroplasties. He is on maintenance of opioid, which includes methadone. He has had a history. The patient has had a history of opioid abuse disorder. He has used heroin for 7-8 years when he was in his 20s. He has weaned off heroin. Continues to find methadone helpful. Did have a history of hepatitis C. He has been treated with Harvoni. Feels that the Harvoni somewhat impacted his memory. He is a poor historian. Continues to smoke cigarettes. On occasion does have some movements, which appear choreoathetoid in nature. He has returned today for renewal of his medications. The patient states he is not drinking. He is accompanied by a family member who has sickle cell disease. They have inquired as to whether or not we would be able to provide her with her opioid medications, associated with chronic pain of sickle cell disease. ALLERGIES: MORPHINE. CURRENT MEDICATIONS: Methadone 10 mg 1 p.o. t.i.d., 2-week prescriptions are released at a time. The patient gets his medications by monthly. Uses Travatan Z ophthalmic drops, timolol drops, Flexeril 10 mg t.i.d., Zanaflex 150 mg, Norvasc 5 mg, and hydrochlorothiazide 25 mg. PAIN CLINIC ASSESSMENT AND PQRS: 1. History of osteoarthritic changes involving his knees, hips. The patient is not being treated for rheumatoid arthritis. 2. Height 5 feet 9 inches, weight 177 pounds, BMI is 26.2. 3. Vital signs: Blood pressure 119/84, pulse 85, respiratory rate 14, room air saturation is 100%. 4. Pain intensity 8-9/10. 5. Fall history: The patient has not fallen in the last 3 months. 6. Blood thinner. The patient is on Brilinta. 7. Hypertension. The patient is being treated for hypertension. 8. Opioids greater than 6 weeks. 9. Risk assessment tool high risk for opioids. 10. Functional assessment tool 55/70. [place] [address] PAIN MANAGEMENT CONSULTATION Name: ARABELLA OMALLEY Room #: REG Teri Moreau#: [id number] Admission: 02/11/19 Attend Phys: Adenike Stokes MD Discharge: Date of : 54 Report #: [id number] 11. Recreational drug use. The patient denies use of recreational drugs. 12. Tobacco: The patient is a former smoker. He has been using Chantix to help decrease his tobacco use. 13. Alcohol: The patient has used alcohol in the past. States he is not using alcohol. PHYSICAL EXAMINATION: GENERAL: The patient is a well-developed, well-nourished black male, appears his stated age. He is alert and oriented x 3. His affect is appropriate. Speech is fluent. The patient is accompanied by his relative who is a female about 38 years of age with history of sickle cell disease. The patient walks with antalgic gait. Continues to use his cane. HEENT: Normocephalic, atraumatic. Extraocular eye muscles intact. NECK: Without JVD or adenopathy. LUNGS: Generally clear. IMPRESSION: 1. Chronic pain treated with complex medical regimen using opioid medications dispensed on a 2-week interval of methadone. 2. Hypertension. 3. Liver disease. 4. Hepatitis C, treated with Harvoni. 5. Stomach problems. RECOMMENDATIONS: We discussed the treatment with the patient. Risks and benefits of his opioid medications have continued to be discussed. The patient is aware that 72,000 people as a result of overuse of medications in the past year. The patient states he is keeping his medications as prescribed. We continue to limit his opioid use to biweekly amount. Feels that this medication is helpful. We explained to him that we do not have a [facility] here in the pain clinic. His family member is being seen at the [facility]. She will continue to follow up in the pain clinic for her medications. A script for his medications of methadone 10 mg 1 p.o. t.i.d. have been written. The patient has also been given a script for Narcan 4 mg spray. He will also continue with Flexeril 10 mg t.i.d. We would like to thank you for letting us participate in his care. We hope he continues to improve. <ELECTRONICALLY SIGNED> By: Adenike Stokes MD 02/18/19 0826 [id number] Adenike Stokes MD /nt
== END ==
LOC: PAIN 06:50
DX: G89.29 Other chronic pain (principal); I10 Essential (primary) hypertension; K76.9 Liver disease, unspecified; B19.20 Unspecified viral hepatitis C without hepatic coma

== ENCOUNTER → 2019-03-11 | Outpatient (CLI) | payer OTHER ==
[~2019-03-11] VITALS: Ht 175.3 cm; Wt 79.8 kg
[2019-03-11 08:38] VITALS: BP 134/80
--- NOTE | 2019-03-11 08:52 | NUR ---
Pain Clinic Assessment: 1. History of Osteoarthritis: "ALL OVER" SPINE History of Rheumatoid Arthritis: Not Applicable 2. Height: 5 ft. 9 in. 175.3 cm. Weight: 176.0 lb. oz. 79.833 kg. Patient's BMI: 26.0 3. Vital Signs: BP: 134/80 Pulse: 87 Resp: 14 Temp: 02 Sat: 100 ECG Mon: 4. Pain Intensity: 9 5. Fall Risk: Dizziness: N Needs help standing or walking: Y Fallen in the last 3 months: N Fall risk comments: 6. Patient on Blood Thinner: BRILINTA 7. History of Hypertension: Y 8. Opioid Therapy greater than 6 weeks: Y Opiate Contract Signed: 06/08/17 9. Risk Assessment Tool Provided: HIGH RISK 10. Functional Assessment Tool: / 11. Recreational Drug Use: Past greater than 3 mos Drug Type: Tobacco Use: Current Some Day Smoker Tobacco Type: Amount or Packs/day: How Many Years: Alcohol Use: Past use Frequency: Quant:
--- NOTE | 2019-03-14 08:33 | HPC ---
[facility] [address] [place] [address] PAIN MANAGEMENT CONSULTATION Name: ARABELLA OMALLEY Room #: REG NBA Moreau#: [id number] Admission: 03/11/19 Attend Phys: Krysta Chatterjee Discharge: Date of : 54 Report #: [id number] THIS REPORT FOR: //name// CC: Krysta Jimenez Sr. MD DATE OF SERVICE: 03/11/2019 CHIEF COMPLAINT: Chronic back pain, bilateral leg pain. HISTORY OF PRESENT ILLNESS: This is a 68-year-old gentleman who returns to the pain clinic today for refill of his medications for his ongoing low back pain and right hip pain. He tells me that his lower back has been hurting worse lately, so significantly that he is not doing as much exercise and activity. He is going to see his primary care doctor about ordering x-rays. He feels that his incision site might "pop open" though it is well approximated presently. His pain radiates from his thoracic spine into his lumbar spine down to his bilateral hips into his legs to his calves. It is a 9/10 today, a constant, sharp pain. The medications do help slightly he reports. He denies any problems with constipation. He tells me he does have some lactulose that tastes terrible that he does not want to use, he felt we prescribe that for him. I explained to him that that was to help decrease his ammonia levels that was from his primary care doctor and they would want him to continue that medications. It does help with constipation though as well. ALLERGIES: MORPHINE. CURRENT LIST OF MEDICATIONS: Methadone 10 mg 3 times a day, Flexeril 10 mg 3 times a day p.r.n., Chantix, Brilinta 90 mg b.i.d., Lipitor 80 mg daily, metoprolol 25 mg, aspirin 81 mg, Travatan eyedrops, Norvasc 5 mg daily, hydrochlorothiazide daily. PQRS: 1. He has a history of arthritic changes involving his knees, hips, and spine. He denies any rheumatoid arthritis. 2. Height is 5 feet 9 inches, weight is 176, BMI is 26. 3. Vital signs 134/80, pulse is 87, respirations 14, oxygen sat is 100. 4. Pain score 9/10. 5. Denies dizziness. Does need help walking using a cane, has not fallen in the last 3 months. 6. The patient is on Brilinta as well as hypertension medicines. 7. Opiate therapy is greater than 6 weeks; therefore, an opioid signed contract is on the chart. His risk assessment tool is high. Functional assessment is 55/70. 8. Recreational drug use in the past. He is a current smoker [place] [address] PAIN MANAGEMENT CONSULTATION Name: ARABELLA OMALLEY Room #: REG NBA Moreau#: [id number] Admission: 03/11/19 Attend Phys: Krysta Chatterjee Discharge: Date of : 54 Report #: [id number] alcohol. Tobacco: He is using Chantix to help decrease his smoking. According to the prescription monitoring system, he is filling appropriately for his medications. PHYSICAL EXAMINATION: GENERAL: This is a well-developed, well-nourished black gentleman who appears his stated age, placing his current pain score at 9/10 today. He is alert and orientated. Speech is fluent. HEENT: Normocephalic, atraumatic. Extraocular eye muscles are intact. NECK: Without JVD or adenopathy. EXTREMITIES: Upper extremity strength is equal. He has discomfort in his thoracic and lumbar spine. He has significant scoliosis in his lumbar spine. Pain radiates into his right hip, down his bilateral legs to his calves. His previous surgical scar is approximated with no openings noted. The patient walks with an antalgic gait using a cane. IMPRESSION: 1. Chronic pain, treated with complex medical management. 2. Hypertension. 3. Liver disease. 4. Hepatitis. 5. Osteoarthritis. 6. Scoliosis as previous back surgeries. We reviewed the fact that opiate medications are being used to provide analgesia adequate to support activities of daily living, not attempting to achieve a specific pain score on the 0-10 Visual Analog Scale. The current opiate medications are providing sufficient analgesia to allow the patient to participate in activities of daily living. The patient is not exhibiting any aberrant behavior suggestive of drug diversion. The patient is not having any adverse reactions to medications. The patient is not suffering from daytime somnolence or mental acuity changes. The patient is managing opiate-induced constipation with appropriate awua-ynq-xqjsjxh agents and dietary considerations. The patient was counseled on concern for caution with operating a motor vehicle while using opiate medications. A physical exam was performed and the patient's functional status was evaluated. All patients with back pain were advised against the bed rest greater than 4 days and were advised to return to normal activities. Pain score assessment was noted and the treatment plan was reviewed with the patient. All current medications, both prescribed and OTC were reviewed and reconciled on the electronic medical record. Tobacco screening was accomplished and smoking cessation was advised when indicated. BMI was noted and diet/exercise modification was recommended for all patients following outside normal parameters. [address] [address] PAIN MANAGEMENT CONSULTATION Name: ARABELLA OMALLEY Room #: REG [facility]#: [id number] Admission: 03/11/19 Attend Phys: Krysta Chatterjee Discharge: Date of : 54 Report #: [id number] I reviewed with the patient today their responsibilities to safeguard prescription medications, reviewed their responsibility to utilize medications only as prescribed by the physician. They are to seek and receive pain medications only from 1 physician group ( [facility]). They are to use 1 pharmacy and keep the clinic informed if they change pharmacies. Their responsibilities include making followup visits in a timely fashion and to avoid abrupt discontinuation of medication usage. Their responsibilities further include bringing their medications (bottles from the pharmacy with residual pills) to the visit for possible confirmation of pill counts and the patient understands it is their responsibility to submit to random drug screens to ensure both that the medications prescribed are present, and that no other controlled substances are present. All prescriptions provided today were generated electronically. PLAN: 1. We discussed treatment options with the patient today. Dr. Stokes was present for part of this. We did look at his surgical incision. His last surgery was greater than 3 years ago. It is approximated with no openings. Dr. Stokes did explain to him that he does not have much fatty tissue covering over his spine. He believes that it is cosmetic, it is not causing any problem, though the patient is worried. We encouraged him to see his primary care doctor, maybe a surgeon would do a reconstruction of that incisional site. 2. The patient reports having increased pain in his thoracic spine, wondering about seeing another surgeon. I will order an MRI of his thoracic and lumbar spine. He may have that done at [facility] where he has had his other MRIs for comparison. Instructed him to bring those reports to us at the next visit as well as to his primary care appointment and we will determine if he needs further referrals after we see the results. The patient is agreeable with this. He will schedule the MRI on his own. 3. Scripts given today for methadone 10 mg t.i.d. #45, for today and 2-week release and Flexeril 10 mg #90 t.i.d. with 2 additional refills. 4. According to the prescription monitoring system, the patient is at 90 morphine milliequivalents and he is seen on a monthly basis. The patient is seen today with Dr. Stokes who collaborated care. <ELECTRONICALLY SIGNED> By: Krysta Chatterjee 03/14/19 0833 [id number] Krysta Chatterjee /yumiko
== END ==
LOC: PAIN 06:49
DX: M54.5 Low back pain (principal); I10 Essential (primary) hypertension; M19.90 Unspecified osteoarthritis, unspecified site; M41.80 Other forms of scoliosis, site unspecified; K76.9 Liver disease, unspecified; G89.29 Other chronic pain; K75.9 Inflammatory liver disease, unspecified

== ENCOUNTER → 2019-04-13 | Outpatient (CLI) | payer OTHER ==
[~2019-04-13] VITALS: Ht 175.3 cm; Wt 81.3 kg
[~2019-04-13] MED LIST changes: +CELEBREX 200 M200 M1 PO; +CELEBREX 200 M200 MG PO
[2019-04-13 08:26] VITALS: BP 134/92
--- NOTE | 2019-04-13 08:39 | NUR ---
Pain Clinic Assessment: 1. History of Osteoarthritis: "ALL OVER" SPINE History of Rheumatoid Arthritis: Not Applicable 2. Height: 5 ft. 9 in. 175.3 cm. Weight: 179.2 lb. oz. 81.285 kg. Patient's BMI: 26.5 3. Vital Signs: BP: 134/92 Pulse: 106 Resp: 14 Temp: 02 Sat: 100 ECG Mon: 4. Pain Intensity: 2 5. Fall Risk: Dizziness: N Needs help standing or walking: N Fallen in the last 3 months: N Fall risk comments: 6. Patient on Blood Thinner: BRILINTA 7. History of Hypertension: Y 8. Opioid Therapy greater than 6 weeks: Y Opiate Contract Signed: 06/08/17 9. Risk Assessment Tool Provided: HIGH RISK-7 10. Functional Assessment Tool: 11. Recreational Drug Use: Past greater than 3 mos Drug Type: Tobacco Use: Current Some Day Smoker Tobacco Type: Cigarettes Amount or Packs/day: 5-6 cig How Many Years: 54 Alcohol Use: Past use Frequency: Quant:
--- NOTE | 2019-04-14 08:36 | HPC ---
[facility] [address] [place] [address] PAIN MANAGEMENT CONSULTATION Name: ARABELLA OMALLEY [facility]: [id number] Admission: 04/13/19 Attend Phys: Krysta Chatterjee Discharge: Date of : 54 Report #: [id number] THIS REPORT FOR: //name// CC: Krysta Jimenez DATE OF SERVICE: 04/13/2019 CHIEF COMPLAINT: Chronic back pain, bilateral leg pain. HISTORY OF PRESENT ILLNESS: This is a very pleasant 68-year-old gentleman who returns to the pain clinic today very upbeat and excited to report that his pain score is a 2/10 in his low back and right hip. He reports that he has recently started Celebrex from his primary care doctor and has found it very beneficial along with his methadone in controlling his pain. His average pain score had been 7-8 a day, so this is a significant decrease. He tells me he has been able to be more active. He even danced with his granddaughter. He would like us to refill that medication since he does see us on a regular basis as opposed to seeing Dr. Jimenez only as needed. The patient denies any problems with constipation or daytime sleepiness. He reports his pain is aggravated occasionally with driving and prolonged sitting. ALLERGIES: GABAPENTIN. CURRENT LIST OF MEDICATIONS: Celebrex 400 mg daily, Flexeril 10 mg at bedtime, methadone 10 mg t.i.d., Chantix, atorvastatin 80 mg at bedtime, metoprolol 25 mg, aspirin 81 mg, amlodipine 5 mg and hydrochlorothiazide 25 mg. PQRS: 1. He has a history of diffuse osteoarthritis of multiple joints as well as his spine. Denies any rheumatoid arthritis. 2. Height is 5 feet 9 inches, weight is 179, BMI is 26. 3. Vital signs 134/92, pulse is 106, respirations 14, oxygen sat is 100, pain score is 2/10. 4. Fall risk. Denies dizziness, does not need help walking or standing, has not fallen in the last 3 months. The patient is no longer on Brilinta. He does take medicine for hypertension. Opioid therapy is greater than 6 weeks; therefore, an opioid signed contract is on the chart. His risk assessment tool is high. Functional assessment is 55/70. Recreational drug use in the past. He currently smokes 5-6 cigarettes a day, trying to quit. He is currently on Chantix as well. Has alcohol use in the past. According to the prescription monitoring system, the patient is filling appropriately for his medication. He is due to fill his methadone today. There is a recent drug screen on the chart that is appropriate as well. [address] [address] PAIN MANAGEMENT CONSULTATION Name: ARABELLA OMALLEY Room #: REG NBA Moreau#: [id number] Admission: 04/13/19 Attend Phys: Krysta Chatterjee Discharge: Date of : 54 Report #: [id number] PHYSICAL EXAMINATION: GENERAL: This is a well-developed 68-year-old gentleman who appears his stated age, placing his current pain score at 2/10 today. He is alert and orientated, quite upbeat today. HEENT: Normocephalic, atraumatic. Pupils equal, round and reactive to light. Mucous membranes are moist. NECK: Without adenopathy or JVD. EXTREMITIES: He has significant scoliosis of his lumbar spine. Pain radiates from his lumbar spine into his right hip down to his calf. He walks with an antalgic gait. His lower extremity strength judged to be 5/5 in all major muscle groups. IMPRESSION: 1. Chronic pain, treated with complex medical management. 2. Hypertension. 3. Liver disease. 4. Hepatitis. 5. Osteoarthritis affecting multiple joints. 6. Scoliosis and previous back surgeries. We reviewed the fact that opiate medications are being used to provide analgesia adequate to support activities of daily living, not attempting to achieve a specific pain score on the 0-10 Visual Analog Scale. The current opiate medications are providing sufficient analgesia to allow the patient to participate in activities of daily living. The patient is not exhibiting any aberrant behavior suggestive of drug diversion. The patient is not having any adverse reactions to medications. The patient is not suffering from daytime somnolence or mental acuity changes. The patient is managing opiate-induced constipation with appropriate yrgs-pvz-hdcgxyc agents and dietary considerations. The patient was counseled on concern for caution with operating a motor vehicle while using opiate medications. A physical exam was performed and the patient's functional status was evaluated. All patients with back pain were advised against the bed rest greater than 4 days and were advised to return to normal activities. Pain score assessment was noted and the treatment plan was reviewed with the patient. All current medications, both prescribed and OTC were reviewed and reconciled on the electronic medical record. Tobacco screening was accomplished and smoking cessation was advised when indicated. BMI was noted and diet/exercise modification was recommended for all patients following outside normal parameters. I reviewed with the patient today their responsibilities to safeguard prescription medications, reviewed their responsibility to utilize medications only as prescribed by the physician. They are to seek and receive pain medications only from 1 physician group ([facility]). They are to use [address] [address] PAIN MANAGEMENT CONSULTATION Name: ARABELLA OMALLEY Room #: REG [facility]#: [id number] Admission: 04/13/19 Attend Phys: Krysta Chatterjee Discharge: Date of : 54 Report #: [id number] pharmacy and keep the clinic informed if they change pharmacies. Their responsibilities include making followup visits in a timely fashion and to avoid abrupt discontinuation of medication usage. Their responsibilities further include bringing their medications (bottles from the pharmacy with residual pills) to the visit for possible confirmation of pill counts and the patient understands it is their responsibility to submit to random drug screens to ensure both that the medications prescribed are present, and that no other controlled substances are present. All prescriptions provided today were generated electronically. PLAN: 1. We discussed treatment options with the patient today. The patient has brought a pill bottle of Celebrex 400 mg tablets that he was recently prescribed by [facility]. He is wanting us to refill that medication, finds it very beneficial in helping control some of his pain. I explained to him that we are not able to keep him at a 400 mg dose on a continuous level. We would gladly write 200 mg tablets for him. I explained the risks of dyspepsia and GI complications of that higher dose over a prolonged period of time. The patient verbalizes understanding. He will gladly take the 200 mg since he reports he is feeling much better with his anti-inflammatory, Celebrex 200 mg, #30 with 2 additional refills was e-scribed to his pharmacy. 2. The patient reports he is no longer on Brilinta anticoagulation therapy. He does take an aspirin a day. 3. We will refill his methadone 10 mg tablets 3 times a day. Scripts given for 45 pills to be released today and in 2 weeks, 45 more pills. 4. The patient denies any problems with daytime sleepiness or constipation. He does continue to smoke 5-6 tablets a day. We did talk about smoking cessation since he is on Chantix. He reports he is trying to quit and the Chantix has been helpful. 5. The patient is seen in collaboration with Dr. Adam Stokes who did see the patient as well today. The patient will return in 1 month. <ELECTRONICALLY SIGNED> By: Krysta Chatterjee 04/14/19 0836 [id number] Krysta Chatterjee /nt
== END ==
LOC: PAIN 06:53
DX: G89.29 Other chronic pain (principal); I10 Essential (primary) hypertension; K76.9 Liver disease, unspecified; K75.9 Inflammatory liver disease, unspecified; M19.90 Unspecified osteoarthritis, unspecified site

== ENCOUNTER → 2019-05-13 | Outpatient (CLI) | payer OTHER ==
[~2019-05-13] VITALS: Ht 175.3 cm; Wt 84.1 kg
[2019-05-13 09:20] VITALS: BP 131/80
--- NOTE | 2019-05-17 08:24 | HPC ---
[facility] [address] [place] [address] PAIN MANAGEMENT CONSULTATION Name: ARABELLA OMALLEY Room #: REG [facility] Chung.#: [id number] Admission: 05/13/19 Attend Phys: Krysta Chatterjee Discharge: Date of : 54 Report #: [id number] THIS REPORT FOR: //name// CC: Krysta Jimenez Sr. MD DATE OF SERVICE: 05/13/2019 CHIEF COMPLAINT: Chronic back pain, bilateral leg pain. HISTORY OF PRESENT ILLNESS: This is a 68-year-old gentleman who returns to the pain clinic today for refill of his medications. He reports that he is doing quite well on his current regimen of Celebrex and methadone rating a pain score 2/10, he does report that he thinks he would have no pain if he took 2 Celebrex a day, but he knows that he is unable to do that as it may cause adverse effects for him. Again, his pain is in his lower back, hips and legs. It is a cramping, sharp pain that is worse with driving and prolonged sitting, that the medications again are very beneficial and he would like a refill of those today. ALLERGIES: GABAPENTIN. CURRENT LIST OF MEDICATIONS: Methadone 10 mg 3 times a day, Celebrex 200 mg daily, Flexeril 10 mg daily, Chantix, Lipitor, metoprolol, aspirin, Travatan, Norvasc and hydrochlorothiazide. PQRS: 1. He has history of osteoarthritis in multiple joints as well as his spine. He denies any rheumatoid arthritis. 2. Height is 5 feet 9, weight is 185, BMI is 27. 3. Vital signs, 131/80, pulse is 90, respirations 18, oxygen sat is 99. 4. Pain score is 2/10. 5. Denies dizziness, does not need help walking or standing, has not fallen in the last 3 months. 6. The patient is not on any blood thinners, but does take medicine for hypertension. 7. Opioid therapy is greater than 6 weeks; therefore, an opioid signed contract is on the chart. Risk assessment is high. Functional assessment is 55/70. 8. Recreational drug use in the past. He is a current smoker, about half a pack a day and does occasionally drink alcohol. According to the prescription monitoring system, the patient is filling appropriately for his medications. He is due to fill those medicines today. His current morphine mEq is 90 MME per day. There is a recent drug screen [place] the [place] [address] PAIN MANAGEMENT CONSULTATION Name: ARABELLA OMALLEY Room #: REG NBA Moreau#: [id number] Admission: 05/13/19 Attend Phys: Krysta Chatterjee Discharge: Date of : 54 Report #: [id number] PHYSICAL EXAMINATION: GENERAL: This is a well-developed, well-nourished 68-year-old gentleman who appears his stated age, placing his current pain score at 2/10 today. He is alert and orientated and his speech is fluent. HEENT: Normocephalic, atraumatic. Extraocular eye muscles are intact. Mucous membranes are moist. NECK: Without adenopathy or JVD. EXTREMITIES: He has discomfort in his lumbar spine that does radiate into his bilateral hips and legs. He has significant scoliosis of his lumbar spine. MUSCULOSKELETAL: The patient walks with a slightly antalgic gait. His lower extremity strength judged to be 5/5, which is equal and symmetrical. IMPRESSION: 1. Chronic pain, treated with complex medical management under terms of written opioid agreement. 2. Osteoarthritis. 3. Scoliosis and previous back surgeries. 4. Hypertension. 5. Liver disease. 6. Hepatitis. We reviewed the fact that opiate medications are being used to provide analgesia adequate to support activities of daily living, not attempting to achieve a specific pain score on the 0-10 Visual Analog Scale. The current opiate medications are providing sufficient analgesia to allow the patient to participate in activities of daily living. The patient is not exhibiting any aberrant behavior suggestive of drug diversion. The patient is not having any adverse reactions to medications. The patient is not suffering from daytime somnolence or mental acuity changes. The patient is managing opiate-induced constipation with appropriate orjn-wez-qbzrwgt agents and dietary considerations. The patient was counseled on concern for caution with operating a motor vehicle while using opiate medications. PLAN: 1. We discussed treatment options with the patient today. The patient feels that his current regimen is doing quite well in controlling his pain, rating at only a 2/10 today. He knows weather changes do increase his pain, but he feels like lately he has been doing quite well. 2. Scripts given today for methadone 10 mg, #45, patient takes these 3 times a day, given for release today and 2-week release per his insurance company. 3. Flexeril and Celebrex are not needed to be refilled today. We will refill those at the next appointment. 4. The patient is seen today with Dr. Stokes who collaborated care and did see [facility] [address] [place] [address] PAIN MANAGEMENT CONSULTATION Name: ARABELLA OMALLEY Room #: [facility]AN[facility] Lizzeth#: [id number] Admission: 05/13/19 Attend Phys: Krysta Chatterjee Discharge: Date of : 54 Report #: [id number] the patient as well. The patient will return on June [address] Stokes for an appointment. <ELECTRONICALLY SIGNED> By: Krysta Chatterjee 05/17/19 0824 [id number] [id number] Krysta Chatterjee /yumiko
== END ==
LOC: PAIN 06:49
DX: M54.5 Low back pain (principal); M19.90 Unspecified osteoarthritis, unspecified site; M41.80 Other forms of scoliosis, site unspecified; K76.89 Other specified diseases of liver; I10 Essential (primary) hypertension; G89.29 Other chronic pain; K75.9 Inflammatory liver disease, unspecified

== ENCOUNTER → 2019-06-10 | Outpatient (CLI) | payer OTHER ==
[~2019-06-10] VITALS: Ht 175.3 cm; Wt 83.0 kg
[~2019-06-10] MED LIST changes: +NARCAN4 MG NARES
[2019-06-10 12:48] VITALS: BP 150/82
--- NOTE | 2019-06-10 12:49 | NUR ---
Pain Clinic Assessment: 1. History of Osteoarthritis: "ALL OVER" SPINE History of Rheumatoid Arthritis: NONE 2. Height: 5 ft. 9 in. 175.3 cm. Weight: 183.0 lb. oz. 83.008 kg. Patient's BMI: 27.0 3. Vital Signs: BP: 150/82 Pulse: 96 Resp: 14 Temp: 02 Sat: 97 ECG Mon: 4. Pain Intensity: 3-4 5. Fall Risk: Dizziness: N Needs help standing or walking: N Fallen in the last 3 months: N Fall risk comments: 6. Patient on Blood Thinner: None 7. History of Hypertension: Y 8. Opioid Therapy greater than 6 weeks: Y Opiate Contract Signed: 06/08/17 9. Risk Assessment Tool Provided: HIGH RISK-7 10. Functional Assessment Tool: 11. Recreational Drug Use: Past greater than 3 mos Drug Type: Tobacco Use: Current Some Day Smoker Tobacco Type: Cigarettes Amount or Packs/day: 0.5 How Many Years: 50 Alcohol Use: No Frequency: Quant:
--- NOTE | 2019-06-17 08:39 | HPC ---
[facility] [place] [address] PAIN MANAGEMENT CONSULTATION Name: ARABELLA OMALLEY [id number] Admission: 06/10/19 Attend Phys: Adenike Stokes MD Discharge: Date of : 54 Report #: [id number] THIS REPORT FOR: cc: Shahbaz Jimenez Sr, MD, Otis S Sr MD Brown, N. Wayne MD ~ THIS REPORT FOR: //name// CC: Adenike Jimenez DATE OF SERVICE: 06/10/2019 PRIMARY CARE PHYSICIAN: Dr. Shahbaz Jimenez. CHIEF COMPLAINT: "Here for medications, they are still working." HISTORY: The patient is a 68-year-old gentleman who has been followed in the pain clinic. As you may recall, he has a history of chronic pain. He has been followed in the pain clinic for quite some time. Finds that his medications continue to be helpful. He has returned today for renewal of his medications. He has noted some increase in his pain and discomfort. He is moving from his old apartment to another one. He denies drinking alcohol at this juncture. ALLERGIES: MORPHINE. CURRENT MEDICATIONS: Methadone 10 mg 1 p.o. t.i.d., 2-week prescriptions are released at this time. The patient receives his medication on a monthly basis. He is using Travatan Z ophthalmic drops, timolol drops, Flexeril 10 mg t.i.d., Zanaflex 150 mg, Norvasc 5 mg, hydrochlorothiazide 25 mg. PAIN CLINIC ASSESSMENT AND PQRS: 1. The patient has osteoarthritic changes involving his knees, hips. The patient is not being treated for rheumatoid arthritis. 2. Height 5 feet 9 inches, weight 183 pounds, BMI is 27.0. 3. Vital signs: Blood pressure is 150/82, pulse 96, respiratory rate 14, room air saturation 97%. 4. Pain intensity 3-/10. 5. Fall risk. The patient has not fallen in the last 3 months. 6. Blood thinner. He is on a blood thinning medication Brilinta. 7. History of hypertension. He is being treated for hypertension. 8. Opioids. The patient receives opioids from one source, the pain clinic. 9. Risk assessment tool high risk. 10. Functional assessment tool 55/70. 11. Recreational drug use: The patient denies. 12. Tobacco: The patient currently smokes 5-6 cigarettes [place] [address] PAIN MANAGEMENT CONSULTATION Name: ARABELLA OMALLEY Room #: [facility]#: [id number] Admission: 06/10/19 Attend Phys: Adenike Stokes MD Discharge: Date of : 54 Report #: [id number] use of alcoholic beverages, history of one-half pack of cigarettes per day for the last 50 years. PHYSICAL EXAMINATION: GENERAL: The patient is a well-developed, well-nourished black male, appears his stated age. He is alert and oriented x 3. His affect is appropriate. Speech is fluent. HEENT: Normocephalic, atraumatic. Extraocular eye muscles intact. Sclerae nonicteric, slightly discolored sclerae. NECK: Without adenopathy or JVD. LUNGS: Generally clear. ABDOMEN: Nontender. EXTREMITIES: Upper extremity muscle strength generally 5-/5. The patient walks with a cane. IMPRESSION: 1. Chronic pain with complex medical regimen using opioid medications dispensed on a 2-week interval using methadone. 2. Hypertension. 3. Liver disease. 4. Hepatitis C, treated with Harvoni. 5. Stomach problems. RECOMMENDATIONS: We discussed treatment options with the patient. At this juncture, he feels that his medications are helpful. He is aware that opioid medications can be helpful. They can be problematic in some people, who developed addiction. He is taking his medications as prescribed. The patient has been given a Narcan spray in the past should respiratory problems be problematic. He will continue with his medications. He will call us if he has any concerns. He has noticed an increase in pain and discomfort. His apartment complex where he currently lives has changed his policies. He and a number of other residents required to move. They lost their section 8 status. He finds that this additional activity has increased his level of pain and discomfort. Overall, things are going reasonably well. We will continue with his medications. He will call us if he has any concerns. A script for his medications has been provided. Questions have been sought from the patient. They were answered. He will follow up as needed. <ELECTRONICALLY SIGNED> By: Adenike Stokes MD 06/17/19 0839 [id number] Adenike Stokes MD /JARROD
== END ==
LOC: PAIN 06:49
DX: Z76.0 Encounter for issue of repeat prescription (principal); G89.29 Other chronic pain; I10 Essential (primary) hypertension; Z86.19 Personal history of other infectious and parasitic diseases; Z79.899 Other long term (current) drug therapy; Z79.891 Long term (current) use of opiate analgesic

== ENCOUNTER → 2019-08-31 | Outpatient (CLI) | payer OTHER ==
[~2019-08-31] VITALS: Ht 175.3 cm; Wt 82.5 kg
[2019-08-31 08:43] VITALS: BP 148/97
--- NOTE | 2019-08-31 08:59 | NUR ---
Pain Clinic Assessment: 1. History of Osteoarthritis: "ALL OVER" SPINE History of Rheumatoid Arthritis: NONE 2. Height: 5 ft. 9 in. 175.3 cm. Weight: 181.8 lb. oz. 82.464 kg. Patient's BMI: 26.8 3. Vital Signs: BP: 148/97 Pulse: 95 Resp: 16 Temp: 02 Sat: 100 ECG Mon: 4. Pain Intensity: 9 5. Fall Risk: Dizziness: N Needs help standing or walking: Y Fallen in the last 3 months: N Fall risk comments: 6. Patient on Blood Thinner: None 7. History of Hypertension: Y 8. Opioid Therapy greater than 6 weeks: Y Opiate Contract Signed: 06/08/17 9. Risk Assessment Tool Provided: HIGH RISK-7 10. Functional Assessment Tool: / 11. Recreational Drug Use: Past greater than 3 mos Drug Type: COCAINE Tobacco Use: Current Some Day Smoker Tobacco Type: Cigarettes Amount or Packs/day: 2 DAILY How Many Years: 50 Alcohol Use: No Frequency: Quant:
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
== END ==
LOC: PAIN 06:59 → EDSTATUS 09:29
DX: M54.9 Dorsalgia, unspecified (principal); M79.604 Pain in right leg; M79.605 Pain in left leg; G89.29 Other chronic pain; I10 Essential (primary) hypertension; K76.9 Liver disease, unspecified; B19.20 Unspecified viral hepatitis C without hepatic coma; Z79.891 Long term (current) use of opiate analgesic

== ENCOUNTER → 2019-10-26 | Outpatient (CLI) | payer OTHER ==
[~2019-10-26] VITALS: Ht 175.3 cm; Wt 84.0 kg
[2019-10-26 13:24] VITALS: BP 137/87
--- NOTE | 2019-10-26 13:28 | NUR ---
Pain Clinic Assessment: 1. History of Osteoarthritis: "ALL OVER" SPINE History of Rheumatoid Arthritis: NONE 2. Height: 5 ft. 9 in. 175.3 cm. Weight: 185.2 lb. oz. 84.006 kg. Patient's BMI: 27.3 3. Vital Signs: BP: 137/87 Pulse: 86 Resp: 16 Temp: 02 Sat: 100 ECG Mon: 4. Pain Intensity: 8-9 5. Fall Risk: Dizziness: N Needs help standing or walking: Y Fallen in the last 3 months: N Fall risk comments: 6. Patient on Blood Thinner: None 7. History of Hypertension: Y 8. Opioid Therapy greater than 6 weeks: Y Opiate Contract Signed: 06/08/17 9. Risk Assessment Tool Provided: HIGH RISK-7 10. Functional Assessment Tool: 11. Recreational Drug Use: Past greater than 3 mos Drug Type: Tobacco Use: Current Some Day Smoker Tobacco Type: Amount or Packs/day: 4-5 CIGS DAY How Many Years: Alcohol Use: No Frequency: Quant:
--- NOTE | 2019-11-04 09:39 | HPC ---
[facility] [place] [address] PAIN MANAGEMENT CONSULTATION Name: ARABELLA OMALLEY Room #: REG [facility].#: [id number] Admission: 10/26/19 Attend Phys: Adenike Stokes MD Discharge: Date of : 54 Report #: [id number] THIS REPORT FOR: cc: Shahbaz Jimenez Sr, MD, Otis S Sr MD Brown,Adenike Medina MD ~ CC: Adenike Jimenez DATE OF SERVICE: 10/26/2019 CHIEF COMPLAINT: Chronic back and leg pain. HISTORY: The patient is a 69-year-old gentleman who has been followed in the pain clinic. As you may recall, he has continued to have pain and discomfort. He continues to have pain in the low back and both hips and down into his legs. He notes that pain is exacerbated by driving as well as by sitting. He notes some cramping sensation. He feels that his medications are helpful. He notes repositioning can improve his discomfort. He rates his pain as an 8-9/10. He has found his medications helpful. He states that he is having more difficulty ambulating. He is considering getting an electric wheelchair. ALLERGIES: GABAPENTIN. CURRENT MEDICATIONS: Flexeril, Celebrex, methadone 10 mg t.i.d., Narcan has been provided in case of emergency, Chantix, Lipitor, metoprolol, aspirin, amlodipine, and hydrochlorothiazide. PAIN CLINIC ASSESSMENT AND PQRS: 1. The patient has generalized osteoarthritis in multiple joints. Denies rheumatoid arthritis. 2. Height 5 feet 9 inches, weight 185 pounds, BMI is 27.3. 3. Vital signs: Blood pressure 137/87, pulse 86, respiratory rate 16, room air saturation is 100%. 4. Pain intensity 8-10. 5. Fall risk. The patient has not fallen. 6. Blood thinner. The patient is not on a blood thinning medication. 7. Hypertension. The patient is being treated for hypertension. 8. Opioids. The patient receives medication from the pain clinic. 9. Risk assessment tool high. 10. Functional assessment tool 55/70. 11. Recreational drug use: The patient is not to use recreational drugs in the last 3 months. 12. Blood thinner. The patient is currently a smoker, smokes 4-5 cigarettes per day. 13. Alcohol. The patient denies use of alcoholic beverages at this juncture. [address] [address] PAIN MANAGEMENT CONSULTATION Name: ARABELLA OMALLEY Room #: [facility]#: [id number] Admission: 10/26/19 Attend Phys: Adenike Stokes MD Discharge: Date of : 54 Report #: [id number] PHYSICAL EXAMINATION: GENERAL: The patient is a well-developed, well-nourished black male, appears his stated age. He is alert and oriented x 3. His affect is appropriate. Speech is fluent. HEENT: Normocephalic, atraumatic. Extraocular eye muscles intact. Sclerae nonicteric slightly discolored sclerae. NECK: Without adenopathy or JVD. LUNGS: Generally clear. ABDOMEN: Nontender. EXTREMITIES: Upper extremity muscle strength generally 5/5 for the major muscle groups. The patient complains of some pain in lower portion of his back and down his legs. He walks using a cane. IMPRESSION: 1. Chronic pain with complex medical management using opioids to help control the pain, provided in 2-week intervals. 2. Hypertension. 3. Liver disease. 4. Hepatitis C, treated with Harvoni. 5. Stomach problems. RECOMMENDATIONS: We discussed treatment options with the patient. At this juncture, we will continue with medications. A script has been provided. The patient states his legs are getting more weak. He is considering use of electric wheelchair to get around. He has been provided with a Narcan spray should respiratory problems involve. He will also continue with his current medical regimen of Celebrex 200 mg daily. He will monitor his GI tract in regards to use his nonsteroidal. He will continue with his muscle relaxants, Flexeril. He will also continue with methadone 10 mg 1 p.o. t.i.d. We would like to thank you for letting us participate in his care. We hope he continues to improve. <ELECTRONICALLY SIGNED> By: Adenike Stokes MD 11/04/19 0939 [id number] Adenike Stokes MD /nt
== END ==
LOC: PAIN
PROVIDERS: ATTEND Anesthesiology Pain Medicine
DX: M54.5 Low back pain (principal); M79.606 Pain in leg, unspecified; K92.9 Disease of digestive system, unspecified; B19.20 Unspecified viral hepatitis C without hepatic coma; K76.89 Other specified diseases of liver; I10 Essential (primary) hypertension; F11.20 Opioid dependence, uncomplicated; G89.29 Other chronic pain

== ENCOUNTER → 2020-01-06 | Outpatient (CLI) | payer OTHER ==
[~2020-01-06] VITALS: Ht 175.3 cm; Wt 86.6 kg
[2020-01-06 08:17] VITALS: BP 141/90
--- NOTE | 2020-01-06 08:21 | NUR ---
Pain Clinic Assessment: 1. History of Osteoarthritis: "ALL OVER" SPINE History of Rheumatoid Arthritis: NONE 2. Height: 5 ft. 9 in. 175.3 cm. Weight: 191.0 lb. oz. 86.637 kg. Patient's BMI: 28.2 3. Vital Signs: BP: 141/90 Pulse: 87 Resp: 18 Temp: 02 Sat: 99 ECG Mon: 4. Pain Intensity: 9 5. Fall Risk: Dizziness: N Needs help standing or walking: Y Fallen in the last 3 months: Y Fall risk comments: 6. Patient on Blood Thinner: None 7. History of Hypertension: Y 8. Opioid Therapy greater than 6 weeks: Y Opiate Contract Signed: 06/08/17 9. Risk Assessment Tool Provided: HIGH RISK-7 10. Functional Assessment Tool: 55/ 11. Recreational Drug Use: Past greater than 3 mos Drug Type: Tobacco Use: Current Some Day Smoker Tobacco Type: Cigarettes Amount or Packs/day: How Many Years: Alcohol Use: No Frequency: Quant:
--- NOTE | 2020-01-09 15:15 | HPC ---
[facility] [place] [address] PAIN MANAGEMENT CONSULTATION Name: ARABELLA OMALLEY [facility] [id number] Admission: 01/06/20 Attend Phys: Krysta Chatterjee Discharge: Date of : 54 Report #: [id number] THIS REPORT FOR: cc: Shahbaz Jimenez Sr, MD, Otis S Sr MD Hocker, Amanda CNS ~ CC: Neema Stokes MD DATE OF SERVICE: 01/06/2020 CHIEF COMPLAINT: Chronic low back pain, right hip pain. HISTORY OF PRESENT ILLNESS: This is a 69-year-old gentleman who returns to the pain clinic today complaining of increasing pain in his lower back that radiates into his right hip. He states that the pain medications are not as helpful anymore. He has not had any in the past 2 months per his report. He has been busy moving and has not had time to come in for an appointment. Today, he is rating the pain score at 9/10 again pain is located in his lower back, radiating down both hips and legs, but more prominently in his right hip. He has had previous right hip surgery. He states he has fallen several times, so he is unsure if he has injured his back and hip since he is having increasing pain. He states that walking, driving and sitting are very painful. He feels that the medication is not as beneficial as it had in the past. He is requesting an increase in pain medicine or rotation to a different medication. He is also wondering if he is able to have an x-ray or MRI of his back. The patient is also reporting that at times he has drainage from his lower incision. He states that a caregiver has noticed drainage from his incision at times. Today, it is clean, dry and intact. ALLERGIES: GABAPENTIN. CURRENT LIST OF MEDICATIONS: Flexeril, Celebrex, Chantix, Lipitor, metoprolol, aspirin, amlodipine and hydrochlorothiazide. PQRS: 1. He has osteoarthritis that is diffuse. He denies any rheumatoid arthritis. 2. Height is 5 feet 9 inches, weight is 191, BMI is 28. 3. Vital signs; blood pressure 141/90, pulse is 87, respirations 18, oxygen sat is 99%. 4. Pain score is 9/10. 5. Denies dizziness. Does need assistance with walking. He is using a walker today and reports he does have electric wheelchair, now, he has fallen in the last 3 months. 6. The patient is not on any blood thinners, but [place] [address] PAIN MANAGEMENT CONSULTATION Name: ARABELLA OMALLEY [facility] [id number] Admission: 01/06/20 Attend Phys: Krysta Chatterjee Discharge: Date of : 54 Report #: [id number] 7. His opioid therapy is greater than 6 weeks; therefore, an opioid signed contract is on the chart. Risk assessment is high. Functional assessment is 55/70. 8. Recreational drug use in the past. He is a current smoker, some tobacco products trying to quit. He is on Chantix and does not drink alcohol. According to the prescription monitoring system, the patient has not filled any medications in the way of opioids since 12/07. Per his report, he has not taken any opioids in the past 2 months. PHYSICAL EXAMINATION: GENERAL: This is a well-developed, well-nourished black gentleman who appears his stated age. He is alert and orientated. His affect is appropriate. His speech is fluent. Placing his pain score at 9/10. HEENT: Normocephalic, atraumatic. Extraocular eye muscles are intact. Sclerae slightly discolored and he is wearing a mask. NECK: Without adenopathy or JVD. MUSCULOSKELETAL: Extremities; upper extremity strength judged to be 5/5 as well as lower extremity strength seems to be equal and symmetrical. He does have positive straight leg raising on the right. Pain and discomfort in his lumbar portion of his back that radiates bilaterally following the L4-L5 and L5-S1 dermatomal distribution. He is using a walker today. His incision in his lumbar spine is well approximated with no drainage noted or no openings noted in his incision. IMPRESSION: 1. Chronic pain with complex medical management utilizing opioids. The patient currently off all opioids. 2. Hypertension. 3. Liver disease. 4. Hepatitis C. 5. Lumbar radiculopathy and right hip pain. IMAGIN. X-ray of the right hip, AP and lateral and pelvis shows postsurgical changes in his right hip that appear normally aligned with minimal degeneration. No abnormalities are evident. 2. We ordered an MRI with no results are back presently. RECOMMENDATIONS: 1. We discussed treatment options with the patient today. I did have Dr. Stokes present for part of this discussion. We explained to him that we are unable to go higher on his opioid medications, though sometimes we recommend an opioid holiday, which the patient has done for the past 2 months to try and reset the receptors to see if the pain medication is beneficial again. We are willing to restart his methadone, encouraged him to take one tablet twice a day for the [facility] [address] [place] [address] PAIN MANAGEMENT CONSULTATION Name: ARABELLA OMALLEY Room #: [facility]#: [id number] Admission: 01/06/20 Attend Phys: Krysta Chatterjee Discharge: Date of : 54 Report #: [id number] first few days, then increase back to 3 tablets a day. The patient is reluctant, but agreeable to restart this medication. He is hopeful that it will be more beneficial this time. Scripts sent for 10 mg tablets, #45 for 2-week supply and then another prescription to fill in 2 weeks for additional 2-week supply. 2. The patient complains of drainage in his back at times. It is clean, dry and intact. Since he is having increasing pain that is radiating down his legs, I think it is warranted to attempt an MRI. We will try to authorize this and have this done today. The patient does have significant transportation issues since he is here at the clinic today, it would be beneficial for him to have this done here in the hospital. We ordered MRI of the lumbar spine. Depending on the findings, we will have him back for a possible epidural by Dr. Stokes. We discussed this possibility with the patient. He is agreeable to try an injection if he feels it is beneficial. 3. We did order an x-ray of his right hip. He has had surgery in the past, but is complaining of significant increase in his hip, which again showed no new pathology. I believe his symptoms may be coming from his lumbar spine. 4. The patient will follow up for possible injection next week with Dr. Stokes. Otherwise in 1 month for followup for medications. Flexeril and Celebrex were also sent for a total of 3 months today. 5. The patient is seen in collaboration with Dr. Stokes. <ELECTRONICALLY SIGNED> By: Krysta Chatterjee 01/09/20 1515 [id number] Krysta Chatterjee /nt
== END ==
LOC: PAIN 12-23 13:53 → RAD 06:48 → PAIN 06:48
PROVIDERS: ATTEND Clinical Nurse Specialist Adult Health
DX: G89.29 Other chronic pain (principal); M51.16 Intervertebral disc disorders with radiculopathy, lumbar region; M48.061 Spinal stenosis, lumbar region without neurogenic claudication; I10 Essential (primary) hypertension; K76.9 Liver disease, unspecified; Z79.891 Long term (current) use of opiate analgesic; M25.551 Pain in right hip

== ENCOUNTER → 2020-02-22 | Outpatient (CLI) | payer OTHER ==
[~2020-02-22] VITALS: Ht 175.3 cm; Wt 87.0 kg
--- NOTE | ~2020-02-22 | HPC ---
[facility] [address] [place] [address] PAIN MANAGEMENT CONSULTATION Name: ARABELLA OMALLEY Room #: REG NBA Lizzeth#: [id number] Admission: 02/22/20 Attend Phys: Krysta Chatterjee Discharge: Date of : 54 Report #: [id number] CC: Krysta Jimenez DATE OF SERVICE: 02/22/2020 CHIEF COMPLAINT: Chronic low back pain, right hip pain and lumbar radiculopathy. HISTORY OF PRESENT ILLNESS: This is a 69-year-old gentleman who returns to the pain clinic today complaining of increasing pain in his lower back that is radiating down his right hip into his leg. He feels that it is getting worse over time, rating his pain score a 10/10. It is a cramping, sharp pain. He reports that it is getting more difficult to walk. He is using a walker at all times. He has pain with sitting, walking, standing and driving. He feels that the medications are beneficial to a point, but he would like an increase in his methadone. He believes that it would be more beneficial for him if he could take more pain medications. He denies any problems with constipation or daytime somnolence as a result of his medications. The patient does report that he is seeing a mobile doctor from [facility] that comes to his house. That doctor informed him that we could increase his opioid if we would like to and also encouraged the patient to have an electric wheelchair and to use that at all times per the patient's report. ALLERGIES: GABAPENTIN. CURRENT LIST OF MEDICATIONS: Methadone 10 mg t.i.d., Flexeril p.r.n., Cymbalta, Narcan, Chantix, Lipitor, metoprolol, aspirin, Travatan, Norvasc, hydrochlorothiazide. PQRS: 1. He has osteoarthritis that is diffuse with spinal stenosis. He denies any rheumatoid arthritis. 2. Height is 5 feet 9 inches, weight is 191, BMI is 28. 3. Vital signs; blood pressure 154/84, pulse is 96, respirations 20, oxygen sat is 100. 4. Pain score is 10/10. 5. Denies dizziness. Does need help with ambulation. He does use a walker. He states he has fallen in the last 3 months, but has not gone to see a medical professional regarding this fall. 6. The patient is not on any blood thinners, but does take medicine for hypertension. 7. Opioid therapy is greater than 6 weeks; therefore, an opioid signed contract is on the chart. 8. Risk assessment tool is high. Functional assessment is 55/70. 9. Recreational drug use in the past. He is a current smoker of tobacco, though trying to quit. He does not drink alcohol. According to the prescription monitoring system, the patient is filling appropriately for his medications. He is due to fill those medicines today, filling them in a timely fashion, though his morphine milliequivalent is above the CDC guidelines at 120 on one conversion sheet. He has been closely monitored on a monthly basis in our clinic with no deviations of fills and the patient submits to regular drug screens that have been appropriate for his medication as well. PHYSICAL EXAMINATION: GENERAL: This is a well-developed, well-nourished black gentleman who appears his stated age, placing his current pain score today at 10/10. His affect is appropriate. His speech is fluent. HEENT: Normocephalic, atraumatic. Extraocular eye muscles are intact. Sclerae slightly discolored and he is wearing a mask. NECK: Without adenopathy or JVD. MUSCULOSKELETAL: He has pain that radiates from his lumbar region of his back into his right hip, down his right leg following the L3-L4, L4-L5 dermatomal distribution. Lower extremity strength is symmetrical at 5/5, though he feels they are weaker than his exam. He has good sensation from L5-S1. He is using a walker today. He has a slightly antalgic gait. He has a well-healed well-approximated scar in his lumbar spine with no drainage noted. IMPRESSION: 1. Chronic pain with complex medical management utilizing opioid medications. 2. Lumbar radiculopathy at the L3-L4, L4-L5 level. 3. Spinal stenosis. 4. Failed back surgery. 5. Hepatitis C. IMAGING FINDINGS: MRI. 1. Surgical changes of interbody fusion at the L4-L5 level, despite the laminectomy defect there is persistent moderate spinal stenosis and right-sided neural foraminal narrowing. 2. Advanced degenerative disk disease at the L2-L3, L3-L4 with moderate severe spinal stenosis and L3-L4 marked facet arthrosis with ligamentum flavum thickening and severe neural foraminal stenosis. 3. Moderate to severe spinal stenosis is also present at the L2-L3 level. Hip x-ray post-surgical changes of the right hip appear normally aligned with minimal degenerative tapering of bilateral hips. No acute bony abnormalities evident. We reviewed the fact that opiate medications are being used to provide analgesia adequate to support activities of daily living, not attempting to achieve a specific pain score on the 0-10 Visual Analog Scale. The current opiate medications are providing sufficient analgesia to allow the patient to participate in activities of daily living. The patient is not exhibiting any aberrant behavior suggestive of drug diversion. The patient is not having any adverse reactions to medications. The patient is not suffering from daytime somnolence or mental acuity changes. The patient is managing opiate-induced constipation with appropriate xysg-lfd-rojfvvy agents and dietary considerations. The patient was counseled on concern for caution with operating a motor vehicle while using opiate medications. PLAN: 1. We discussed treatment options with the patient today. Based on the findings of his MRI, I believe he may benefit from an epidural steroid injection above his fusion either at the L2-L3 or L3-L4 level or he may benefit from a transforaminal steroid injection since most of his pain is located in the lower back that radiates in his right leg, but I believe we will start with a lumbar epidural steroid injection. This will be performed by Dr. Lenin Stokes. The patient would like to think about this and schedule an appointment for the next month. In the meantime, we will seek authorization for a lumbar epidural injection through his insurance carrier to have that approved for his next visit. 2. In the meantime, we will continue him on his opioid medication of methadone 10 mg t.i.d. The patient has been stable on this med for quite some time. I did explain to him that we do follow the [facility] and government guidelines. We will not increase his methadone to a higher level. If his doctor at [facility] would like to take over his opioid medications, we instructed the patient he may seek those from that physician. At this time, the patient would like to continue his opioid medications from us. Scripts will be sent in 2-week intervals to his pharmacy by Dr. Stokes for methadone 10 mg, #45, to be released today and again in 4 weeks. 3. The patient does continue on his Flexeril and Celebrex, that is not needing refills of those meds today. The patient is seen today in collaboration with Dr. Stokes who he will see in 1 month after we obtain authorization for his lumbar epidural steroid injection. By: [id number] Krysta Chatterjee /yumiko
[2020-02-22 08:49] VITALS: BP 154/84
--- NOTE | 2020-02-22 09:03 | NUR ---
Pain Clinic Assessment: 1. History of Osteoarthritis: "ALL OVER" SPINE History of Rheumatoid Arthritis: NONE 2. Height: 5 ft. 9 in. 175.3 cm. Weight: 191.8 lb. oz. 87.000 kg. Patient's BMI: 28.3 3. Vital Signs: BP: 154/84 Pulse: 96 Resp: 20 Temp: 02 Sat: 100 ECG Mon: 4. Pain Intensity: 10 5. Fall Risk: Dizziness: N Needs help standing or walking: Y Fallen in the last 3 months: Y Fall risk comments: 6. Patient on Blood Thinner: None 7. History of Hypertension: Y 8. Opioid Therapy greater than 6 weeks: Y Opiate Contract Signed: 06/08/17 9. Risk Assessment Tool Provided: HIGH RISK-7 10. Functional Assessment Tool: 55/ 11. Recreational Drug Use: Past greater than 3 mos Drug Type: Tobacco Use: Current Some Day Smoker Tobacco Type: Amount or Packs/day: How Many Years: Alcohol Use: No Frequency: Quant:
== END ==
LOC: PAIN 02-15 08:58
PROVIDERS: ATTEND Clinical Nurse Specialist Adult Health
DX: M54.16 Radiculopathy, lumbar region (principal); G89.29 Other chronic pain; M25.551 Pain in right hip; M48.061 Spinal stenosis, lumbar region without neurogenic claudication; Z79.899 Other long term (current) drug therapy; Z79.82 Long term (current) use of aspirin; Z79.891 Long term (current) use of opiate analgesic

== ENCOUNTER → 2020-03-21 | Outpatient (CLI) | payer OTHER ==
[~2020-03-21] VITALS: Ht 175.3 cm; Wt 84.7 kg
[2020-03-21 10:16] VITALS: BP 131/75
--- NOTE | 2020-03-21 10:26 | NUR ---
Pain Clinic Assessment: 1. History of Osteoarthritis: "ALL OVER" SPINE History of Rheumatoid Arthritis: NONE 2. Height: 5 ft. 9 in. 175.3 cm. Weight: 186.8 lb. oz. 84.732 kg. Patient's BMI: 27.6 3. Vital Signs: BP: 131/75 Pulse: 91 Resp: 14 Temp: 02 Sat: 98 ECG Mon: 4. Pain Intensity: 8 5. Fall Risk: Dizziness: N Needs help standing or walking: Y Fallen in the last 3 months: N Fall risk comments: 6. Patient on Blood Thinner: None 7. History of Hypertension: Y 8. Opioid Therapy greater than 6 weeks: Y Opiate Contract Signed: 06/08/17 9. Risk Assessment Tool Provided: HIGH RISK-7 10. Functional Assessment Tool: / 11. Recreational Drug Use: Past greater than 3 mos Drug Type: Tobacco Use: Current Some Day Smoker Tobacco Type: Amount or Packs/day: How Many Years: Alcohol Use: No Frequency: Quant:
== END | disposition home or self-care (01) ==
LOC: PAIN 06:48
PROVIDERS: ATTEND Anesthesiology Pain Medicine
DX: M54.16 Radiculopathy, lumbar region (principal); G89.29 Other chronic pain; F17.210 Nicotine dependence, cigarettes, uncomplicated; Z98.890 Other specified postprocedural states; Z79.899 Other long term (current) drug therapy

== ENCOUNTER → 2020-05-09 | Outpatient (CLI) | payer OTHER ==
--- NOTE | ~2020-05-09 | OD ---
[facility] [address] [place] [address] DELIVERY NOTE Name: ARABELLA OMALLEY Room #: REG NBA Wilkes.#: [id number] Admission: 05/09/20 Attend Phys: Krysta Chatterjee Discharge: Date of : 54 Report #: [id number] THIS REPORT FOR: //name// DATE OF SERVICE: 05/09/2020 CHIEF COMPLAINT: Chronic back pain and leg pain. This is a telemedicine appointment that I am speaking via the phone from 10:50-11:08 that the patient has consented. HISTORY OF PRESENT ILLNESS: This is a 69-year-old gentleman, who is followed in the pain clinic for his ongoing low back pain and radiculopathy. He is reporting a pain score 7/10 today. He does report that the lumbar epidural steroid injection that Dr. Stokes performed on him in March afforded him 70-100% relief and slowly dissipated over the month. He feels the last 2 weeks, his pain has returned to his previous level. He reports that during that time with decreased pain, he was able to be more active. He could walk much easier and would like to schedule another injection since it was so beneficial. The patient would like to schedule that injection at the time of his next opioid medication refill. He denies constipation issues as a result of his medication that is not being controlled with rooe-ioc-sajibxn medicines. ALLERGIES: GABAPENTIN. CURRENT LIST OF MEDICATIONS: Methadone 10 mg t.i.d., Flexeril p.r.n., Celebrex, atorvastatin, metoprolol, aspirin, Travatan, amlodipine and hydrochlorothiazide. PQRS: 1. He has osteoarthritis in multiple joints in his spine. He denies rheumatoid arthritis. 2. Height, weight and vital signs are deferred due to a telemedicine appointment. Pain score is 7/10 today. 3. Fall risk. Denies dizziness. He does use a walker. He has not fallen in the last 3 months. The patient is not on any blood thinners, but does take medicine for hypertension. Opioid therapy is greater than 6 weeks; therefore, an opioid signed contract is on the chart. Risk assessment is high. Functional assessment is 55/70. 4. Recreational drug use in the past. He is a current smoker and does not drink alcohol. According to the prescription monitoring system, he is due to fill his medications. He has not filled them since March and he was unable to come to an appointment last week due to transportation issues. PHYSICAL EXAMINATION: REVIEW OF SYSTEMS: He is alert and orientated gentleman who is answering all my [address] [address] DELIVERY NOTE Name: ARABELLA OMALLEY Room #: REG [facility] Lizzeth#: [id number] Admission: 05/09/20 Attend Phys: Krysta Chatterjee Discharge: Date of : 54 Report #: [id number] questions appropriately, rating his pain score 7/10 with pain in his lower back that radiates down his leg following the L2-L3 dermatomal distribution. Uses his walker most of the time per his report. IMPRESSION: 1. Chronic pain with complex medical management utilizing scheduled methadone. 2. Hypertension. 3. Liver disease. 4. Hepatitis. 5. Lumbar radiculopathy. 6. Spinal stenosis and failed back surgery. We reviewed the fact that opiate medications are being used to provide analgesia adequate to support activities of daily living, not attempting to achieve a specific pain score on the 0-10 Visual Analog Scale. The current opiate medications are providing sufficient analgesia to allow the patient to participate in activities of daily living. The patient is not exhibiting any aberrant behavior suggestive of drug diversion. The patient is not having any adverse reactions to medications. The patient is not suffering from daytime somnolence or mental acuity changes. The patient is managing opiate-induced constipation with appropriate ziup-eir-zepmizx agents and dietary considerations. The patient was counseled on concern for caution with operating a motor vehicle while using opiate medications. PLAN: 1. We discussed treatment options with the patient today. He believes the injection was 70-100% beneficial, would like to repeat his lumbar epidural steroid injection and is hopeful to have continued relief from the second injection. We will schedule that with Dr. Stokes in May. We will continue the patient on his methadone 10 mg tablets 3 times a day, #45 per script for 2-week supply will be sent electronically by Dr. Stokes for today and again in 2 weeks and then appointment made on the with Dr. Stokes. 2. The patient reports that he is staying safe at home, trying to avoid crowds because he is worried about COVID and is hopeful to have the vaccination soon. 3. The patient is talked today via telephone for this audio visual telemedicine appointment with collaboration with Dr. Stokes. By: [id number] Krysta Chatterjee /yumiko
== END ==
LOC: PAIN 04-18 13:26 → TELEPC 06:43 → PAIN 09:55
PROVIDERS: ATTEND Clinical Nurse Specialist Adult Health
DX: M54.16 Radiculopathy, lumbar region (principal); G89.29 Other chronic pain; I10 Essential (primary) hypertension; K76.89 Other specified diseases of liver; K75.9 Inflammatory liver disease, unspecified; M96.1 Postlaminectomy syndrome, not elsewhere classified; Z88.8 Allergy status to other drugs, medicaments and biological substances; Z79.899 Other long term (current) drug therapy

== ENCOUNTER → 2020-06-07 | Outpatient (CLI) | payer OTHER | LOC: RAD 09:34 | PROVIDERS: ATTEND Pediatrics | DX: J98.4 Other disorders of lung (principal) ==

== ENCOUNTER → 2020-06-13 | Outpatient (CLI) | payer OTHER ==
[~2020-06-13] VITALS: Ht 175.3 cm; Wt 85.6 kg
[~2020-06-13] MED LIST changes: +PROAIR HFA8.5 GM INH; +TRELEGY ELLIPT1 EACH INH
[2020-06-13 09:48] VITALS: BP 153/100
--- NOTE | 2020-06-13 10:07 | NUR ---
Pain Clinic Assessment: 1. History of Osteoarthritis: "ALL OVER" SPINE History of Rheumatoid Arthritis: NONE 2. Height: 5 ft. 9 in. 175.3 cm. Weight: 188.8 lb. oz. 85.639 kg. Patient's BMI: 27.9 3. Vital Signs: BP: 153/100 Pulse: 84 Resp: 16 Temp: 02 Sat: 100 ECG Mon: 4. Pain Intensity: 8 5. Fall Risk: Dizziness: N Needs help standing or walking: Y Fallen in the last 3 months: N Fall risk comments: 6. Patient on Blood Thinner: None 7. History of Hypertension: Y 8. Opioid Therapy greater than 6 weeks: Y Opiate Contract Signed: 06/08/17 9. Risk Assessment Tool Provided: HIGH RISK-7 10. Functional Assessment Tool: / 11. Recreational Drug Use: Past greater than 3 mos Drug Type: Tobacco Use: Current Some Day Smoker Tobacco Type: Cigarettes Amount or Packs/day: 1/2 pack How Many Years: Alcohol Use: Yes Frequency: Weekly Quant: 1-2
== END ==
LOC: PAIN 06-06 11:04
PROVIDERS: ATTEND Anesthesiology Pain Medicine
DX: I10 Essential (primary) hypertension (principal); K76.89 Other specified diseases of liver; B19.9 Unspecified viral hepatitis without hepatic coma; M54.16 Radiculopathy, lumbar region; J44.9 Chronic obstructive pulmonary disease, unspecified; M48.061 Spinal stenosis, lumbar region without neurogenic claudication; F11.20 Opioid dependence, uncomplicated; Z88.8 Allergy status to other drugs, medicaments and biological substances; Z79.899 Other long term (current) drug therapy

== ENCOUNTER → 2020-09-28 | Outpatient (CLI) | payer OTHER ==
[~2020-09-28] VITALS: Ht 175.3 cm; Wt 80.7 kg
[2020-09-28 09:12] VITALS: BP 158/70
--- NOTE | 2020-09-28 09:18 | NUR ---
Pain Clinic Assessment: 1. History of Osteoarthritis: "ALL OVER" SPINE History of Rheumatoid Arthritis: NONE 2. Height: 5 ft. 9 in. 175.3 cm. Weight: 178.0 lb. oz. 80.740 kg. Patient's BMI: 26.3 3. Vital Signs: BP: 158/70 Pulse: 94 Resp: 16 Temp: 02 Sat: 98 ECG Mon: 4. Pain Intensity: 10 5. Fall Risk: Dizziness: N Needs help standing or walking: N Fallen in the last 3 months: N Fall risk comments: 6. Patient on Blood Thinner: None 7. History of Hypertension: Y 8. Opioid Therapy greater than 6 weeks: Y Opiate Contract Signed: 06/08/17 9. Risk Assessment Tool Provided: HIGH RISK-7 10. Functional Assessment Tool: 11. Recreational Drug Use: Past greater than 3 mos Drug Type: Tobacco Use: Current Some Day Smoker Tobacco Type: Cigarettes Amount or Packs/day: 5 CIG/DAY How Many Years: 50 Alcohol Use: No Frequency: Quant:
== END ==
LOC: PAIN 07:12
PROVIDERS: ATTEND Anesthesiology Pain Medicine
DX: G89.29 Other chronic pain (principal); I10 Essential (primary) hypertension; M54.16 Radiculopathy, lumbar region; M48.061 Spinal stenosis, lumbar region without neurogenic claudication; J44.9 Chronic obstructive pulmonary disease, unspecified; G47.30 Sleep apnea, unspecified; Z79.891 Long term (current) use of opiate analgesic; Z79.899 Other long term (current) drug therapy

== ENCOUNTER → 2020-10-24 | Outpatient (CLI) | payer OTHER ==
[~2020-10-24] VITALS: Ht 175.3 cm; Wt 82.9 kg
[2020-10-24 09:49] VITALS: BP 125/79
--- NOTE | 2020-10-24 09:55 | NUR ---
Pain Clinic Assessment: 1. History of Osteoarthritis: "ALL OVER" SPINE History of Rheumatoid Arthritis: NONE 2. Height: 5 ft. 9 in. 175.3 cm. Weight: 182.8 lb. oz. 82.918 kg. Patient's BMI: 27.0 3. Vital Signs: BP: 125/79 Pulse: 82 Resp: 16 Temp: 02 Sat: 100 ECG Mon: 4. Pain Intensity: 6 5. Fall Risk: Dizziness: N Needs help standing or walking: Y Fallen in the last 3 months: N Fall risk comments: 6. Patient on Blood Thinner: None 7. History of Hypertension: Y 8. Opioid Therapy greater than 6 weeks: Y Opiate Contract Signed: 06/08/17 9. Risk Assessment Tool Provided: HIGH RISK-7 10. Functional Assessment Tool: / 11. Recreational Drug Use: Past greater than 3 mos Drug Type: Tobacco Use: Current Some Day Smoker Tobacco Type: Amount or Packs/day: How Many Years: Alcohol Use: No Frequency: Quant:
== END | disposition home or self-care (01) ==
LOC: PAIN 10-10 10:18
PROVIDERS: ATTEND Anesthesiology Pain Medicine
DX: M54.16 Radiculopathy, lumbar region (principal); M48.061 Spinal stenosis, lumbar region without neurogenic claudication; G89.29 Other chronic pain; I10 Essential (primary) hypertension; J44.9 Chronic obstructive pulmonary disease, unspecified; F32.9 Major depressive disorder, single episode, unspecified; H40.9 Unspecified glaucoma; Z98.890 Other specified postprocedural states; Z79.899 Other long term (current) drug therapy; Z86.19 Personal history of other infectious and parasitic diseases; Z87.891 Personal history of nicotine dependence